=== PATIENT | female | born 1935 | race Caucasian/White ===

== ENCOUNTER 2018-12-08 08:45 | Emergency (ER) | payer OTHER ==
[~2018-12-08] VITALS: Ht 167.6 cm; Wt 69.9 kg
--- NOTE | 2018-12-08 08:55 | NUR ---
Weakness and near syncopal episode at home. Patient a/ox2, able to answer with yes or no. Patient stated she "doesnt feel good." Patient changed into gown, attached to the monitor. No distress noted. Dr. Moya at bedside for eval.
[2018-12-08 09:13] LABS: APPEARANCE,URINE Clear (CLEAR); BILIRUBIN,URINE Negative (NEGATIVE); BLOOD, URINE Trace-intact Ery/uL (NEGATIVE); COLOR,URINE Yellow (YELLOW); KETONES,URINE Negative (NEGATIVE); LEUKOCYTE ESTERASE ,URINE Small (NEGATIVE); NITRITE, URINE Positive (NEGATIVE); PH,URINE 5.5 (5.0-8.0); PROTEIN,URINE Trace mg/dl (NEGATIVE); UGLUCOSE Negative (NEGATIVE); UROBILINOGEN,URINE 0.2 EU/dL (0.2)
[2018-12-08 09:15] LABS: BACTERIA,URINE 1+ /HPF (None Seen); SQUAMOUS EPITHELIAL CELL,UR Few /HPF (None Seen)
[2018-12-08 09:24] LABS: HEMOGLOBIN 12.1 g/dL (11.5-14.8); PLATELET COUNT (AUTO) 255 /CMM (150-450)
[2018-12-08 09:27] LABS: BASOPHILS # (AUTO) 0.1 /CMM (0.0-0.2); BASOPHILS % (AUTO) 0.9 % (0.0-2.0); EOSINOPHILS % (AUTO) 0.8 % (0.0-6.0); HEMATOCRIT 37 % (33-45); LYMPHOCYTES # (AUTO) 2.1 /CMM (0.8-4.8); LYMPHOCYTES % (AUTO) 15.3 % (20.0-44.0); MEAN CORPUSCULAR HGB CONC 32 g/dl (31.0-36.0); MEAN CORPUSCULAR VOLUME 78 fL (82-100); MONOCYTES # (AUTO) 1.1 /CMM (0.1-1.30); MONOCYTES % (AUTO) 7.7 % (2.0-12.0); NEUTROPHILS # (AUTO) 10.3 /CMM (1.8-8.9); NEUTROPHILS % (AUTO) 75.3 % (43.0-81.0); RED BLOOD CELL COUNT(AUTO) 4.77 MIL/uL (4.0-5.2); WHITE BLOOD COUNT (AUTO) 13.7 K/uL (4.3-11.0)
[2018-12-08 09:32] LABS: CALCIUM, SERUM 9.1 mg/dL (8.5-10.1); CARBON DIOXIDE 25 mmol/L (21-32); CHLORIDE 102 mmol/L (98-107); GLUCOSE 194 mg/dL (74-106); POTASSIUM 4.2 mmol/L (3.5-5.1); SODIUM SERUM 137 mmol/L (136-145); UREA NITROGEN, BLOOD 19 mg/dL (7-18)
--- NOTE | 2018-12-08 09:32 | NUR ---
Caregiver at bedside. Patient and caregiver refused chest x-ray at this time. Explained risks and benefits. Dr. zhu made aware.
[2018-12-08 09:38] LABS: ALANINE AMINOTRANSFERASE 15 U/L (12-78); ALBUMIN 2.9 g/dL (3.4-5.0); ALKALINE PHOSPHATASE 71 U/L (46-116); ASPARTATE AMINOTRANSFERASE 15 U/L (15-37); BILIRUBIN,DIRECT 0.2 mg/dL (0.0-0.2); BILIRUBIN,TOTAL 0.8 mg/dL (0.2-1.0); TOTAL PROTEIN, SERUM 7.1 g/dL (6.4-8.2)
[2018-12-08] MEDS ORDERED: CEFTRIAXONE 1GM BAG (ER ONLY) 50 ML IV ONE (09:53)
[2018-12-08] MEDS ORDERED: CEFTRIAXONE 1GM BAG (ER ONLY) 1 GM/50 ML PIGGYBACK IV ONE (10:00)
[2018-12-08] MEDS ORDERED: IV NS 0.9% 1,000 ML BAG IV ONE (10:00)
--- NOTE | 2018-12-08 11:03 | NUR ---
CALLED [facility]
--- NOTE | 2018-12-08 11:42 | NUR ---
PER DR. VANEGAS, SHE SPOKE WITH DR. GUERIN AT [facility]. CAREGIVER AND PATIENT REFUSED CHEST X-RAY AND BLOOD DRAW FOR REPEAT LACTIC ACID.
--- NOTE | 2018-12-08 12:25 | NUR ---
PT ACCEPTED TO [facility] ER ACCEPTING MD: DR. FLANAGAN NUMBER FOR REPORT: [phone] S TRANSPORT ETA: [id number]
--- NOTE | 2018-12-08 13:08 | NUR ---
REPORT GIVEN TO NARDA BOYER FOR ANATOLIY.
--- NOTE | 2018-12-08 13:18 | NUR ---
PATIENT TRANSFERRED TO [facility], IN STABLE CONDITION. PERICARE PROVIDED, DIAPER CHANGED. IV ON LEFT HAND G20 INTACT AND FLUSHES WELL. CAREGIVER KAMILLA AT BEDSIDE. NO DISTRESS NOTED. Addendum: 12/08/18 at 1324 by ROALCANCES ADDENDUM: FOOD PROVIDED FOR PATIENT, GIVEN TO CAREGIVER.
[2018-12-08 13:19] VITALS: BP 112/76
== END 2018-12-08 13:35 | disposition short-term general hospital (02) ==
LOC: ER 08:46
DX: E86.0 Dehydration (principal); N39.0 Urinary tract infection, site not specified; I48.91 Unspecified atrial fibrillation; K21.9 Gastro-esophageal reflux disease without esophagitis; E11.9 Type 2 diabetes mellitus without complications; M19.90 Unspecified osteoarthritis, unspecified site; Z85.828 Personal history of other malignant neoplasm of skin; Z98.890 Other specified postprocedural states; Z88.5 Allergy status to narcotic agent; Z88.2 Allergy status to sulfonamides
CPT/HCPCS: 36415; 80048; 80076; 81001; 83605; 84484; 85025; 85730; 87040 ×2; 87086; 93005; 96365; 99285; J0696; J7030; 81000-TC

== ENCOUNTER 2019-10-16 17:47 | Inpatient (IN) | payer OTHER ==
[~2019-10-16] VITALS: Ht 175.3 cm; Wt 77.1 kg
--- NOTE | 2019-10-16 17:50 | NUR ---
PT BIBRA FROM HOME TO ER BED 09. PER REPORT PT WAS FOUND BY CAREGIVER , "SLUMPED IN THE TOILET" PASSED OUT 30 MINS SOC ANALYST. PT WAS AWAKE VERBALLY RESPONSIVE SOC ANALYST W/ BG OF 261 PER REPORT, HX OF STROKE 3 YEARS AGO W/ R SIDED DEFICIT. GOWNED AND PLACED ON MONITOR. STABLE VITALS SOC ANALYST. AWAITING MD ZAPIEN.
[2019-10-16] MEDS ORDERED: ATOR20TA PO (18:03)
[2019-10-16] MEDS ORDERED: WARF1TAB86 MT (18:03)
[2019-10-16] MEDS ORDERED: ATEN25TA PO (18:03)
[2019-10-16] MEDS ORDERED: CITA20TA16 MT (18:03)
[2019-10-16] MEDS ORDERED: LEVE250T2 PO (18:03)
[2019-10-16] MEDS ORDERED: METF-441 MT (18:03)
[2019-10-16] MEDS ORDERED: LEVE250T4 MT (18:03)
[2019-10-16] MEDS ORDERED: LOSA50TA39 MT (18:03)
--- NOTE | 2019-10-16 18:11 | NUR ---
DR HAYES AT BEDSIDE FOR EVAL.
[2019-10-16 18:21] LABS: BASOPHILS # (AUTO) 0.1 /CMM (0.0-0.2); BASOPHILS % (AUTO) 1.1 % (0.0-2.0); EOSINOPHILS % (AUTO) 1.2 % (0.0-6.0); HEMATOCRIT 24 % (33-45); HEMOGLOBIN 7.3 g/dL (11.5-14.8); LYMPHOCYTES % (AUTO) 15.3 % (20.0-44.0); MEAN CORPUSCULAR HGB CONC 30 g/dl (31.0-36.0); MEAN CORPUSCULAR VOLUME 75 fL (82-100); MONOCYTES # (AUTO) 0.9 /CMM (0.1-1.30); MONOCYTES % (AUTO) 7.1 % (2.0-12.0); NEUTROPHILS % (AUTO) 75.3 % (43.0-81.0); PLATELET COUNT (AUTO) 413 /CMM (150-450); RED BLOOD CELL COUNT(AUTO) 3.23 MIL/uL (4.0-5.2); WHITE BLOOD COUNT (AUTO) 13.3 K/uL (4.3-11.0)
[2019-10-16 19:00] LABS: ALANINE AMINOTRANSFERASE 15 U/L (12-78); ALBUMIN 2.7 g/dL (3.4-5.0); ALKALINE PHOSPHATASE 67 U/L (46-116); ASPARTATE AMINOTRANSFERASE 17 U/L (15-37); B-TYPE NATRIURETIC PEPTIDE 1607 PG/ML (0-125); BILIRUBIN,DIRECT 0.1 mg/dL (0.0-0.2); BILIRUBIN,TOTAL 0.3 mg/dL (0.2-1.0); CALCIUM, SERUM 9.1 mg/dL (8.5-10.1); CARBON DIOXIDE 21 mmol/L (21-32); CHLORIDE 107 mmol/L (98-107); CREATININE 1.1 mg/dL (0.6-1.3); GLUCOSE 226 mg/dL (74-106); POTASSIUM 3.7 mmol/L (3.5-5.1); SODIUM SERUM 143 mmol/L (136-145); TOTAL PROTEIN, SERUM 7.1 g/dL (6.4-8.2); UREA NITROGEN, BLOOD 33 mg/dL (7-18)
--- NOTE | 2019-10-16 19:09 | NUR ---
REPOR GIVEN TO MEDICAL AFFAIRS SPECIALIST NURSE FIDENCIO FOR ANATOLIY.
--- NOTE | 2019-10-16 19:14 | NUR ---
REPORT RECEIVED FROM ROSALIND UPTON FOR ANATOLIY
[2019-10-16 19:26] LABS: APPEARANCE,URINE Turbid (CLEAR); BILIRUBIN,URINE LARGE (NEGATIVE); BLOOD, URINE Large Ery/uL (NEGATIVE); COLOR,URINE Red (YELLOW); KETONES,URINE 40 (NEGATIVE); LEUKOCYTE ESTERASE ,URINE Large (NEGATIVE); NITRITE, URINE Positive (NEGATIVE); PH,URINE 8.5 (5.0-8.0); PROTEIN,URINE >=300 mg/dl (NEGATIVE); UGLUCOSE 100 MG/DL mg/dL (NEGATIVE)
[2019-10-16 19:37] LABS: BACTERIA,URINE Moderate /HPF (None Seen); RBC,URINE TOO NUMEROUS TO COUN /HPF (0-2); SQUAMOUS EPITHELIAL CELL,UR Few /HPF (None Seen); WBC,URINE 21-50 /HPF (0-3)
--- NOTE | 2019-10-16 19:41 | NUR ---
CALLED FOR COVID SWAB
--- NOTE | 2019-10-16 19:45 | NUR ---
CHING, PT'S SON
--- NOTE | 2019-10-16 19:49 | NUR ---
CALLED [facility]
--- NOTE | 2019-10-16 19:58 | NUR ---
DR. HAYES SPEAKING WITH [facility]
--- NOTE | 2019-10-16 20:28 | NUR ---
CALLED NURSING SUP FOR BED
[2019-10-16] MEDS ORDERED: CEFTRIAXONE 1GM BAG (ER ONLY) 50 ML IV ONE (20:29)
[2019-10-16 20:30] VITALS: BP 139/67
[2019-10-16] MEDS ORDERED: CEFTRIAXONE 1 G in IV D5W 50 ML IV ONE (20:30)
--- NOTE | 2019-10-16 20:59 | NUR ---
HEMATURIA NOTED. 15 ML
--- NOTE | 2019-10-16 21:05 | NUR ---
BED ASSIGNMENT 310-2
--- NOTE | 2019-10-16 21:14 | NUR ---
REPROT GIVEN TO ROSALIND ADAMS
[2019-10-16] MEDS ORDERED: IV NS 0.9% 1,000 ML IV PRN (21:28)
[2019-10-16 21:30] VITALS: BP 139/67
[2019-10-16] MEDS ORDERED: ONDANSETRON HCL/PF 4 MG/2 ML VIAL IVP PRN (21:30)
[2019-10-16] MEDS ORDERED: ACETAMINOPHEN 325 MG TABLET PO PRN (21:30)
[2019-10-16] MEDS ORDERED: Z GUARD REMEDY 2 OZ OINT TP PRN (21:30)
--- NOTE | 2019-10-16 21:30 | NUR ---
TELE/RN NOTES TELE MONITOR RHTHM AFIB, ALERT, ORIENTED X2, APHASIA, STROUD CATHETER DRAINING DARK RED COLOR URINE AT 150 ML. , RECEIVED PATIENT FROM ER, ON A GURNEY, PALE, WEAK, ON ROOM AIR, OPENS EYES, FOLLOW SIMPLE COMMANDS, PATIENT BELONGINGS CHECK, ROOM ORIENTATION PROVIDED, PATIENT SKIN WITH REDNESS ON SACRUM AND HEEL, OFF LOAD. IV SITE ON LEFT HAND, FAMILY INVOLVED, MD GALICIA ADMITTING DR AMBER SON WANTS TO COMMUNICATE AND DISCUSS CARE WITH MD GALICIA, SIGNED BLOOD TRANSFUSION FORM AND DISCUSSED MEASURES TO SAVE LIFE BY NO ADDED MEASURES TO INTUBATEM TO BRING A COPY OF POLST. REPORTED HAD WARFARIN MEDICATION AMD REPORTED OTHER HOME MEDS, TO FOLLOW UP ON DIET WITH CELIAC AND METFORMING, FOOD CHOICES REQUIRING ATTENTION, AND WILL NEED H&P WITH MEDICAL R MORAIM[facility] MEADOWS PATIENT, NEED FOR BLOOD TRANSFUSION AND MONITORING DURING THE NIGHT.BED LOCKED, CALL LIGHTS WITHIN REACH.
--- NOTE | 2019-10-16 21:45 | NUR ---
VERBAL CONSENT BY MD GALICIA FOR BLOOD TRANSFUSION ORDER.TO FOLLOW UP IN AM FOR SIGNATURE.
[2019-10-16] MEDS ORDERED: FUROSEMIDE 20 MG/2 ML VIAL IV PRN (22:00)
[2019-10-16] MEDS ORDERED: INSULIN REGULAR, HUMAN 100 UNIT/ML 3 ML VIAL SQ PRN (22:00)
[2019-10-16] MEDS ORDERED: ATORVASTATIN 10 MG TABLET PO SCH (22:00)
[2019-10-16] MEDS ORDERED: DEXTROSE 50%-WATER 50 ML DISP.SYRIN IV PRN (22:00)
[2019-10-16] MEDS ORDERED: CITALOPRAM HYDROBROMIDE 20 MG TABLET PO SCH (22:00)
[2019-10-16] MEDS ORDERED: LEVETIRACETAM (250 MG) 250 MG TABLET PO SCH (22:00)
--- NOTE | 2019-10-16 22:00 | NUR ---
TELE/RN NOTES TELE AFIB, PULSE RATE AT 79
--- NOTE | 2019-10-16 22:30 | NUR ---
critical lab reported at 6.8 level, with consent for blood signed by son.
--- NOTE | 2019-10-16 22:43 | NUR ---
TELE/RN NEW ADMISSION NOTES SON CHING INFORMED THAT HE IS THE DPOA OF HIS MOTHER, HE HAS BEEN WAITING FOR SO LONG TO WAIT FOR THE MD, HE WANTS TO CLARIFY PLAN OF CARE HE IS THE DPOA BUT HE DO NOT HAVE THE COPY DUE TO COMING DIRECTLY FROM WORK, HE WANTS TO MAKE SURE THAT HIS MOTHER WHO IS A [employer] MEMBER HAVE ALL THE LIST OF DIAGNOSIS INCLUDING: CELIAC DISEASE NO WHEAT AND NO BARLEY, WOULD LIKE TO HAVE H AND P PROVIDED TO HIM TODAY, INFORMED THAT AND CHARGE NURSE WAS INFORM AND DISCUSSED THAT MEDICAL RECORD WILL BE OPEN TOMORROW, , STEPHANE LOPEZ MADE AWARE.
[2019-10-16 23:17] LABS: HEMATOCRIT 23 % (33-45); MEAN CORPUSCULAR HGB CONC 30 g/dl (31.0-36.0); MEAN CORPUSCULAR VOLUME 73 fL (82-100); PLATELET COUNT (AUTO) 371 /CMM (150-450); RED BLOOD CELL COUNT(AUTO) 3.07 MIL/uL (4.0-5.2); WHITE BLOOD COUNT (AUTO) 11.2 K/uL (4.3-11.0)
[2019-10-16 23:27] LABS: HEMOGLOBIN 6.8 g/dL (11.5-14.8)
[2019-10-17] VITALS (8 sets, daily range): BP systolic 118–162; BP diastolic 61–71
[2019-10-17] MEDS: BLOOD SUGAR DIAGNOSTIC 1 EACH STRIP IN SCH ×4 (00:22→17:30)
--- NOTE | 2019-10-17 01:45 | NUR ---
TELE/RN NOTES I PRBC BLOOD RECEIVED FROM THE LAB, VERIFIED BY HUSSAIN MARTIN, CONSENT SIGNED BY SON,RASHEED FOR MD SIGNATURE TO FOLLOW UP WITH CHARGE NURSE, RECEIVED BLOOD AT 0135. PATIENT
--- NOTE | 2019-10-17 01:49 | NUR ---
TELE/RN NOTES BLOOD CHECKED AND VERIFIED BY ANOTHER RN BRICE, VITAL SIGNS CHECK PRIOR TO ADMINISTRATION, BLOOD TRANSFUSED 379 ML, PATIENT ALERT, ORIENTED, ABLE TO RESPOND AND ALERT X3. BLOOD STARTED AT 0148.
--- NOTE | 2019-10-17 02:25 | NUR ---
TO FOLLOW UP CODE STATUS PERS ON WILL INFORM MD GALICIA ABOUT CODE STATUS, NOT TO INTUBATE BUT TO KEEP ALIVE AND DO CPR.
--- NOTE | 2019-10-17 04:23 | NUR ---
BLOOD TRANSFUSION ENDED, ONE PRBC TRANSFUSED PATIENT WITH NO S/S OF REACTION, RESPITATIONS EVEN AND UNLABORED,SKIN WARM TO TOUCH, AWAKE, ALERT X2, NO GRIMACE OR GUARDING.
[2019-10-17 06:29] LABS: BASOPHILS # (AUTO) 0.1 /CMM (0.0-0.2); BASOPHILS % (AUTO) 0.6 % (0.0-2.0); EOSINOPHILS % (AUTO) 1.7 % (0.0-6.0); HEMATOCRIT 26 % (33-45); HEMOGLOBIN 8.4 g/dL (11.5-14.8); LYMPHOCYTES # (AUTO) 2.8 /CMM (0.8-4.8); LYMPHOCYTES % (AUTO) 26.2 % (20.0-44.0); MEAN CORPUSCULAR HGB CONC 33 g/dl (31.0-36.0); MEAN CORPUSCULAR VOLUME 76 fL (82-100); MONOCYTES # (AUTO) 1.1 /CMM (0.1-1.30); MONOCYTES % (AUTO) 10.4 % (2.0-12.0); NEUTROPHILS # (AUTO) 6.5 /CMM (1.8-8.9); NEUTROPHILS % (AUTO) 61.1 % (43.0-81.0); PLATELET COUNT (AUTO) 351 /CMM (150-450); WHITE BLOOD COUNT (AUTO) 10.6 K/uL (4.3-11.0)
--- NOTE | 2019-10-17 06:45 | NUR ---
310-2 TELE/RN NOTES PATIENT AWAKE, ALERT X2, ABLE TO COOPERATE AND CALM. RESPIRATIONS EVEN AND UNLABORED ON ROOM AIR, SKIN COOL TO TOUCH, WARM BLANKET PROVIDED,PATIENT PALE AND WITH LOW HGB LEVEL OF 6.8 , ONE PRBC OF BLOOD ADMINISTERED, BED LOCKED, CALL LIGHTS WITHIN REACH, WILL ENDORSE TO AM RN FOR ANATOLIY.
[2019-10-17 07:24] LABS: THYROID STIMULATING HORMONE 0.819 uIU/mL (0.358-3.74)
[2019-10-17 07:30] LABS: ALBUMIN 2.5 g/dL (3.4-5.0); BILIRUBIN,TOTAL 0.9 mg/dL (0.2-1.0); CALCIUM, SERUM 8.6 mg/dL (8.5-10.1); CREATININE 0.7 mg/dL (0.6-1.3); MAGNESIUM 1.7 mg/dL (1.8-2.4); PHOSPHORUS 2.8 mg/dL (2.5-4.9); POTASSIUM 3.5 mmol/L (3.5-5.1); TOTAL PROTEIN, SERUM 6.5 g/dL (6.4-8.2)
--- NOTE | 2019-10-17 07:49 | NUR ---
TRUCK ASSEMBLER OPENING NOTES RECEIVED PT IN BED, AWAKE, A/O X1. PATIENT ON ROOM AIR; BREATHING IS EVEN AND UNLABORED; NO SOB NOTED AT THIS TIME. NO COMPLAINS OF PAIN. L HAND IV ACCESS G # 20. SAFETY PRECAUTIONS IN PLACE; BED IN LOW POSITION AND LOCKED, RAILS UP X2, CALL LIGHT WITHIN REACH. WILL CONTINUE TO MONITOR PATIENT.
[2019-10-17] MEDS ORDERED: LEVETIRACETAM (250 MG) 250 MG TABLET PO SCH (09:00)
[2019-10-17] MEDS ORDERED: ATENOLOL 25 MG TABLET PO SCH (09:00)
[2019-10-17] MEDS: LOSARTAN POTASSIUM 50 MG TABLET PO SCH ×2 (09:14→17:37)
[2019-10-17] MEDS: POTASSIUM CHLORIDE 20 MEQ TAB.PRT.SR PO SCH ×3 (09:15→11:38)
[2019-10-17] MEDS: METFORMIN 850 MG TABLET PO SCH ×2 (09:15→17:37)
[2019-10-17] MEDS ORDERED: MAGNESIUM OXIDE 400 MG TABLET PO ONE (09:30)
[2019-10-17 10:52] LABS: HEMATOCRIT 27 % (33-45); HEMOGLOBIN 8.8 g/dL (11.5-14.8); MEAN CORPUSCULAR HGB CONC 32 g/dl (31.0-36.0); MEAN CORPUSCULAR VOLUME 77 fL (82-100); PLATELET COUNT (AUTO) 360 /CMM (150-450); RED BLOOD CELL COUNT(AUTO) 3.55 MIL/uL (4.0-5.2); WHITE BLOOD COUNT (AUTO) 10.6 K/uL (4.3-11.0)
[2019-10-17] MEDS: FUROSEMIDE 40 MG/4 ML VIAL IV SCH ×2 (11:38→15:02)
--- NOTE | 2019-10-17 12:10 | NUR ---
HIGH LIGHTER NOTES PATIENT'S SON CALLED MULTIPLE TIMES. UPDATES GIVEN. ALSO WANTS TO TALK TO MD. MD NOTIFIED.
--- NOTE | 2019-10-17 12:16 | NUR ---
DENT REMOVER NOTES PT WITH ACCU-CHECK BS 211 REFUSED INSULIN ADMINISTRATION
--- NOTE | 2019-10-17 13:30 | NUR ---
DIRECTOR ORACLE DATABASE NOTES PER AUTOMOTIVE SALES ASSOCIATE NURSE PT HAD HEMATURIA. DURING EARLY SHIFT URINE WITH HEMATURIA ABOUT 300 MLS. AFTER LASIX AT 1130 (LATE DELIVERY BY PHARMACY) PATIENT STARTED TO DIURIS AND STROUD BAG GOT FULL WITH DARK RED BLOOD. CHARGE NURSE NOTIFIED. CATHETER IRRIGATED WITH 60 CC OF NS. MD NOTIFIED. ORDERS CARRIED OUT. WILL CONTINUE TO MONITOR PATIENT.
[2019-10-17] MEDS ORDERED: PHYTONADIONE 5 MG TABLET PO ONE (14:00)
[2019-10-17 14:53] LABS: HEMATOCRIT 27 % (33-45); HEMOGLOBIN 8.6 g/dL (11.5-14.8); MEAN CORPUSCULAR HGB CONC 32 g/dl (31.0-36.0); MEAN CORPUSCULAR VOLUME 77 fL (82-100); PLATELET COUNT (AUTO) 394 /CMM (150-450); RED BLOOD CELL COUNT(AUTO) 3.55 MIL/uL (4.0-5.2); WHITE BLOOD COUNT (AUTO) 10.6 K/uL (4.3-11.0)
[2019-10-17] MEDS ORDERED: FUROSEMIDE 40 MG/4 ML VIAL IV SCH (15:00)
--- NOTE | 2019-10-17 19:02 | NUR ---
QUILT SEWERLICENSED MIDWIFE NOTES PATIENT TRANSFERRED TO [facility] IN MEDICALLY STABLE CONDITION. VS WNL, PATIENT A/O X2, ON ROOM AIR SATURATING AT 100 %. PATIENT LEFT WITH STROUD CATH (HEMATURIA STILL PRESENT) MD AND CHARGE NURSE AWARE. IV ACCESS ALSO LEFT IN PLACE. ALL DOCUMENTS SIGNED BY 2 NURSES DUE TO PATIENT UNABLE TO SIGN. VALUABLES ACCOUNTED FOR AND FORM SIGNED WELL. PATIENT'S SON, CHING, CONSENTED THE TRANSFER OVER THE PHONE AND ACUTE TO ACUTE FORMS SIGNED. [facility] CALLED AND REPORT GIVEN. PATIENT WAS PICKED UP AT 1800 BY 2 PROFESSIONAL SYSTEM ADMINISTRATOR. PATIENT LEFT THE FLOOR AT 1815.
[2019-10-17] MEDS ORDERED: CEFTRIAXONE 1 G in IV D5W 50 ML IV SCH (21:00)
== END 2019-10-17 18:45 | disposition short-term general hospital (02) | DRG 73 ==
LOC: ER 17:47 → TELE 21:06
PROVIDERS: ADMIT Nurse Practitioner Acute Care; ATTEND Internal Medicine
PROC: 30233N1 Transfusion of Nonautologous Red Blood Cells into Peripheral Vein, Percutaneous Approach (ICD-10-PCS; principal; 2019-10-16)
DX: G90.8 Other disorders of autonomic nervous system (principal); G93.41 Metabolic encephalopathy; N39.0 Urinary tract infection, site not specified; I69.351 Hemiplegia and hemiparesis following cerebral infarction affecting right dominant side; D68.9 Coagulation defect, unspecified; J98.11 Atelectasis; I48.91 Unspecified atrial fibrillation; Z85.828 Personal history of other malignant neoplasm of skin; I50.9 Heart failure, unspecified; K21.9 Gastro-esophageal reflux disease without esophagitis; M19.90 Unspecified osteoarthritis, unspecified site; Z88.5 Allergy status to narcotic agent; Z88.2 Allergy status to sulfonamides; Z79.01 Long term (current) use of anticoagulants; Z79.84 Long term (current) use of oral hypoglycemic drugs; Z79.899 Other long term (current) drug therapy; J44.9 Chronic obstructive pulmonary disease, unspecified; K64.4 Residual hemorrhoidal skin tags; K90.0 Celiac disease; E11.9 Type 2 diabetes mellitus without complications; D64.9 Anemia, unspecified; F32.9 Major depressive disorder, single episode, unspecified; E83.42 Hypomagnesemia; E78.5 Hyperlipidemia, unspecified; G40.909 Epilepsy, unspecified, not intractable, without status epilepticus; R31.9 Hematuria, unspecified; D72.829 Elevated white blood cell count, unspecified; W18.11XA Fall from or off toilet without subsequent striking against object, initial encounter; Y92.002 Bathroom of unspecified non-institutional (private) residence as the place of occurrence of the external cause; G93.89 Other specified disorders of brain
CPT/HCPCS: 36415; 70450-TC; 71045-TC; 80048-TC; 80053-TC; 80061-TC; 80076-TC; 81000-TC; 82962-TC; 83540-TC; 83735-TC; 83880; 84100-TC; 84443-TC; 84484-TC; 85025-TC; 85027-TC; 85610-TC; 85730-TC; 86850-TC; 86921-TC; 87081-TC; 87086-TC; 87186-TC; 92611-TC; 93307-TC; G0378; J0696; J1815; J1940; J7050; J7060; P9016-BL

== ENCOUNTER 2019-10-23 19:57 | Emergency (ER) | payer OTHER ==
[~2019-10-23] VITALS: Ht 175.3 cm; Wt 73.5 kg
[~2019-10-23 19:57] MED LIST: ATEN25TA PO; ATOR20TA PO; CITA20TA16 MT; LEVE250T2 PO; LEVE250T4 MT; LOSA50TA39 MT; METF-441 MT; WARF1TAB86 MT
--- NOTE | 2019-10-23 20:01 | NUR ---
PT BIBRA FOR SYNCOPE. I SPOKE TO THE SON REGARDING THE INCIDENT. SON STATED THE PT USUALLY AMBUALTES WITH HELP OF THE TEAM LEAD. TODAY, PT WAS SITTING ON THE TOILET WHEN SHE STARTED TO HAVE A SYNCOPAL EPISODE. RA87 WAS CALLED, RA WAS TAKING THE PT, THE PT GAINED CONCIOUS. THE SON ALSO STATED THE PT WAS DISCHARGED FROM [facility]. UPON ASSESSMENT PT ABLE TO FOLLOW COMMANDS AND SPEAKS IN MINIMAL WORDS (DUE TO L SIDED STROKE.) PT RR EVEN AND UNLABORED. NO ACUTE DISTRESS NOTED. MD AT BEDSIDE FOR EVAL. AWAITING ORDERS. VSS. WILL COTNINUE TO MONITOR.
--- NOTE | 2019-10-23 20:18 | NUR ---
BROUGHT TO CT
--- NOTE | 2019-10-23 20:42 | NUR ---
CLEANERS AT BEDSIDE FOR LABS
[2019-10-23 20:57] LABS: BASOPHILS # (AUTO) 0.1 /CMM (0.0-0.2); BASOPHILS % (AUTO) 0.5 % (0.0-2.0); EOSINOPHILS % (AUTO) 0.1 % (0.0-6.0); HEMATOCRIT 27 % (33-45); HEMOGLOBIN 7.9 g/dL (11.5-14.8); LYMPHOCYTES # (AUTO) 1.2 /CMM (0.8-4.8); LYMPHOCYTES % (AUTO) 10.5 % (20.0-44.0); MEAN CORPUSCULAR HGB CONC 30 g/dl (31.0-36.0); MEAN CORPUSCULAR VOLUME 79 fL (82-100); MONOCYTES # (AUTO) 1.1 /CMM (0.1-1.30); MONOCYTES % (AUTO) 9.4 % (2.0-12.0); NEUTROPHILS # (AUTO) 9.4 /CMM (1.8-8.9); NEUTROPHILS % (AUTO) 79.5 % (43.0-81.0); PLATELET COUNT (AUTO) 434 /CMM (150-450)
[2019-10-23 21:01] LABS: CALCIUM, SERUM 8.7 mg/dL (8.5-10.1); CREATININE 1.1 mg/dL (0.6-1.3); POTASSIUM 3.5 mmol/L (3.5-5.1)
--- NOTE | 2019-10-23 21:30 | NUR ---
CALLED [facility], AWAITING MD CALL BACK
[2019-10-23 21:37] LABS: EOSINOPHILS % (MANUAL) 2 % (0-4); LYMPHOCYTES % (MANUAL) 9 % (16-48); MONOCYTES % (MANUAL) 6 % (0-11.0); NEUTROPHILS % (MANUAL) 83 (42-76)
[2019-10-23 21:51] LABS: WHITE BLOOD COUNT (AUTO) 11.6 K/uL (4.3-11.0)
--- NOTE | 2019-10-23 22:21 | NUR ---
TRANSFER INFO: [facility] LAURA, RN FOR REPORT [phone] MD NAVARRO ACCEPTING, [facility] ETA [id number]
[2019-10-23 22:22] VITALS: BP 132/70
--- NOTE | 2019-10-23 23:00 | NUR ---
PT TRANSFERED TO [facility].
--- NOTE | 2019-10-23 23:00 | NUR ---
REPORT GIVEN TO BECKY BOYER FOR ANATOLIY AND TRANSFER.
== END 2019-10-23 23:05 | disposition short-term general hospital (02) ==
LOC: ER 19:59
DX: R55 Syncope and collapse (principal); J90 Pleural effusion, not elsewhere classified; D64.9 Anemia, unspecified; I69.351 Hemiplegia and hemiparesis following cerebral infarction affecting right dominant side; I10 Essential (primary) hypertension; I48.91 Unspecified atrial fibrillation; E11.9 Type 2 diabetes mellitus without complications; I25.10 Atherosclerotic heart disease of native coronary artery without angina pectoris; G40.909 Epilepsy, unspecified, not intractable, without status epilepticus; E78.5 Hyperlipidemia, unspecified; K21.9 Gastro-esophageal reflux disease without esophagitis; Z85.828 Personal history of other malignant neoplasm of skin; Z98.890 Other specified postprocedural states; Z88.2 Allergy status to sulfonamides; Z88.5 Allergy status to narcotic agent; Z79.899 Other long term (current) drug therapy
CPT/HCPCS: 36415; 70450-TC; 71045-TC; 80048-TC; 82962-TC; 83735-TC; 84484-TC; 85025-TC; 85730-TC

== ENCOUNTER 2019-10-28 20:57 | Inpatient (IN) | payer OTHER ==
[~2019-10-28] VITALS: Ht 165.1 cm; Wt 70.8 kg
--- NOTE | 2019-10-28 21:02 | NUR ---
DR CHAVEZ ON THE PHONE WITH THE FAMILY
--- NOTE | 2019-10-28 21:22 | NUR ---
Note undone in EDM - 10/28/19 at 2150 by ANDRY ROBSONRA 89 FROM HOME FOR C/O ALOC. RESPIRATORY FAILURE AND ON AMBU BAG WITH EMSs UPON ARRIVAL . DNR ON POLST. PT EYES OPEN, NON REACTIVE, NON VERBAL. PLACED ON O2 HI FLOW NON REBREATHER PER DR. CHAVEZ. PLACED ON ROUTE SALES PERSON. SR. WILL CONT TO MONITOR.
--- NOTE | 2019-10-28 21:22 | NUR ---
AUGUSTINA 89 FROM HOME FOR C/O ALOC. RESPIRATORY FAILURE AND ON AMBU BAG WITH EMSs UPON ARRIVAL . DNR ON POLST. PT EYES OPEN, NON VERBAL. PLACED ON O2 HI FLOW NON REBREATHER PER DR. CHAVEZ. PLACED ON S IRON WORKER. SR. WILL CONT TO MONITOR.
[2019-10-28] MEDS ORDERED: IV NS 0.9% 500 ML BAG IV ONE ×2 (21:30→22:30)
[2019-10-28 21:43] LABS: BASOPHILS % (AUTO) 0.3 % (0.0-2.0); EOSINOPHILS % (AUTO) 0.5 % (0.0-6.0); HEMATOCRIT 39 % (33-45); HEMOGLOBIN 11.1 g/dL (11.5-14.8); LYMPHOCYTES # (AUTO) 2.8 /CMM (0.8-4.8); LYMPHOCYTES % (AUTO) 18.4 % (20.0-44.0); MEAN CORPUSCULAR HGB CONC 28 g/dl (31.0-36.0); MEAN CORPUSCULAR VOLUME 85 fL (82-100); MONOCYTES # (AUTO) 1.1 /CMM (0.1-1.30); MONOCYTES % (AUTO) 7.1 % (2.0-12.0); NEUTROPHILS % (AUTO) 73.7 % (43.0-81.0); PLATELET COUNT (AUTO) 255 /CMM (150-450); RED BLOOD CELL COUNT(AUTO) 4.61 MIL/uL (4.0-5.2)
[2019-10-28 21:50] LABS: ALANINE AMINOTRANSFERASE 13 U/L (12-78); ALBUMIN 2.7 g/dL (3.4-5.0); ALKALINE PHOSPHATASE 90 U/L (46-116); ASPARTATE AMINOTRANSFERASE 18 U/L (15-37); BILIRUBIN,DIRECT 0.2 mg/dL (0.0-0.2); BILIRUBIN,TOTAL 0.7 mg/dL (0.2-1.0); CALCIUM, SERUM 9.4 mg/dL (8.5-10.1); CARBON DIOXIDE 21 mmol/L (21-32); CHLORIDE 114 mmol/L (98-107); CREATININE 1.3 mg/dL (0.6-1.3); LIPASE 144 U/L (73-393); POTASSIUM 4.1 mmol/L (3.5-5.1); SODIUM SERUM 150 mmol/L (136-145); TOTAL PROTEIN, SERUM 7.4 g/dL (6.4-8.2); UREA NITROGEN, BLOOD 24 mg/dL (7-18)
--- NOTE | 2019-10-28 22:00 | NUR ---
PT TO CT VIA [facility]
--- NOTE | 2019-10-28 22:07 | NUR ---
BACK FROM CT
[2019-10-28 22:09] LABS: GLUCOSE 365 mg/dL (74-106)
--- NOTE | 2019-10-28 22:15 | NUR ---
[facility] CALLED.
[2019-10-28 22:26] LABS: EOSINOPHILS % (MANUAL) 1 % (0-4); LYMPHOCYTES % (MANUAL) 20 % (16-48); MONOCYTES % (MANUAL) 7 % (0-11.0); NEUTROPHILS % (MANUAL) 72 (42-76)
[2019-10-28] MEDS ORDERED: VANCOMYCIN 1 GM in IV D5W 250 ML IV ONE (22:30)
[2019-10-28] MEDS ORDERED: PIPERACILLIN /TAZOBACTAM 3.375 G in IV D5W 50 ML IV ONE (22:30)
--- NOTE | 2019-10-28 22:34 | NUR ---
VAUGHN VALERA MD, DR IVAN, ON THE PHONE W/ DR. ALLEN
[2019-10-28] MEDS ORDERED: Z GUARD REMEDY 2 OZ OINT TP PRN (23:00)
[2019-10-28] MEDS ORDERED: ACETAMINOPHEN 325 MG TABLET PO PRN (23:00)
[2019-10-28] MEDS ORDERED: ZOLPIDEM TARTRATE 5 MG TABLET PO PRN (23:00)
[2019-10-28] MEDS ORDERED: ONDANSETRON HCL/PF 4 MG/2 ML VIAL IVP PRN (23:00)
[2019-10-28] MEDS ORDERED: MAGNESIUM HYDROXIDE 30 ML UDC PO PRN (23:00)
[2019-10-28] MEDS ORDERED: DEXTROSE 50%-WATER 50 ML DISP.SYRIN IV PRN (23:00)
[2019-10-28] MEDS ORDERED: INSULIN REGULAR, HUMAN 100 UNIT/ML 3 ML VIAL SQ PRN (23:00)
[2019-10-28 23:05] LABS: APPEARANCE,URINE Slightly Cloudy (CLEAR); BILIRUBIN,URINE Negative (NEGATIVE); BLOOD, URINE Large Ery/uL (NEGATIVE); COLOR,URINE Yellow (YELLOW); KETONES,URINE Negative (NEGATIVE); LEUKOCYTE ESTERASE ,URINE Trace (NEGATIVE); NITRITE, URINE Negative (NEGATIVE); PROTEIN,URINE 100 mg/dl (NEGATIVE); UGLUCOSE 100 MG/DL mg/dL (NEGATIVE); UROBILINOGEN,URINE 0.2 EU/dL (0.2)
[2019-10-28] MEDS ORDERED: VANCOMYCIN 1 GM VIAL ONE (23:05)
[2019-10-28] MEDS ORDERED: PIPERACILLIN /TAZOBACTAM 3.375 G VIAL IV ONE (23:06)
[2019-10-28 23:35] LABS: BACTERIA,URINE None seen /HPF (None Seen); MUCUS,URINE Rare /LPF (None Seen); SQUAMOUS EPITHELIAL CELL,UR Moderate /HPF (None Seen)
[2019-10-28 23:53] LABS: ABG BASE EXCESS -1.6 mmol/L; ABG OXYGEN SATURATION 98.9 % (92.0-98.5); ABG PCO2 32.2 mmHg (35.0-45.0); ABG PH 7.449 (7.350-7.450); ABG PO2 286.8 mmHg (75.0-100.0); COHb 0.3 % (0.5-1.5); MetHb 0.6 % (0.0-1.5); SITE, ABG Left Radial; VENT MODE, BG NRB mask 100% 15L
--- NOTE | 2019-10-29 00:25 | NUR ---
WEATHERIZATION SPECIALISTFELT HANGER NOTE: Received report from Oksana in ER. Received patient in the unit at 0025. Patient was transferred on a gurney. Noted patient on non-rebreather mask on 15L of Oxygen. O2 Sat 100%. Patient is non verbal and does not response to sound or touch. Noted IV access on right AC, 20 gauge. Flushes well, patent, no redness or infiltration. Also noted IV access on Left hand. It flushes well, patent, no redness, or infiltration. Noted denise catheter; intact, draining clear yellow; no oddor. Safety precaution in place. Bed in lowest position, bed is locked, side rails x 2 are up, and call light is within reach. Will keep monitoring patient.
--- NOTE | 2019-10-29 00:28 | NUR ---
REPORT GIVEN TO ROSALIND BARRY FOR ANATOLIY
[2019-10-29] MEDS ORDERED: LEVETIRACETAM (500MG) 250 MG in IV NS 0.9% 100 ML IV SCH (01:00)
[2019-10-29] MEDS ORDERED: DEXTROSE 50%-WATER 50 ML DISP.SYRIN IV PRN (01:00)
[2019-10-29] MEDS ORDERED: LEVETIRACETAM (500MG) 500 MG/5 ML VIAL IV ONE (01:24)
[2019-10-29 02:02] VITALS: BP 148/74
[2019-10-29] MEDS: IV NS 0.9% 1,000 ML IV PRN ×2 (02:34→17:36)
[2019-10-29 03:18] LABS: BASOPHILS # (AUTO) 0.1 /CMM (0.0-0.2); BASOPHILS % (AUTO) 0.5 % (0.0-2.0); EOSINOPHILS % (AUTO) 9.5 % (0.0-6.0); HEMATOCRIT 30 % (33-45); HEMOGLOBIN 9.2 g/dL (11.5-14.8); LYMPHOCYTES # (AUTO) 1.9 /CMM (0.8-4.8); LYMPHOCYTES % (AUTO) 12.2 % (20.0-44.0); MEAN CORPUSCULAR HGB CONC 30 g/dl (31.0-36.0); MEAN CORPUSCULAR VOLUME 79 fL (82-100); MONOCYTES % (AUTO) 6.7 % (2.0-12.0); NEUTROPHILS % (AUTO) 71.1 % (43.0-81.0); PLATELET COUNT (AUTO) 208 /CMM (150-450); RED BLOOD CELL COUNT(AUTO) 3.83 MIL/uL (4.0-5.2); WHITE BLOOD COUNT (AUTO) 15.5 K/uL (4.3-11.0)
[2019-10-29 03:30] LABS: CALCIUM, SERUM 8.5 mg/dL (8.5-10.1); CREATININE 1.2 mg/dL (0.6-1.3); PHOSPHORUS 2.7 mg/dL (2.5-4.9); POTASSIUM 3.4 mmol/L (3.5-5.1)
[2019-10-29 04:15] VITALS: BP 159/109
[2019-10-29] MEDS ORDERED: PIPERACILLIN /TAZOBACTAM 3.375 G VIAL IV ONE (05:12)
[2019-10-29] MEDS ORDERED: ZOSYN IVPB 3.375 G in IV D5W 50ml IV ONE (05:15)
[2019-10-29] MEDS: BLOOD SUGAR DIAGNOSTIC 1 EACH STRIP IN SCH ×4 (06:27→23:38)
--- NOTE | 2019-10-29 06:45 | NUR ---
INSTALLER MOLDING AND TRIM CLOSING NOTE: Patient in bed sleeping comfortably. Patient shows no sign of pain. Safety precaution in place. Bed in lowest position, bed is locked, side rails x 2 are up, and call light is within reach. Will endorse to oncoming nurse.
[2019-10-29] MEDS: INSULIN REGULAR, HUMAN 100 UNIT/ML 3 ML VIAL SQ PRN (06:46)
[2019-10-29] MEDS ORDERED: BLOOD SUGAR DIAGNOSTIC 1 EACH STRIP IN SCH (07:30)
--- NOTE | 2019-10-29 07:30 | NUR ---
YARN MAN NOTES PT IN BED, NON RESPONSIVE TO VERBAL STIMULI, ON NON REBREATHER MASK, O2 SAT OF 100%, RESPIRATIONS SLOW, EVEN AND NON LABORED, NO FACIAL GRIMACING OR MOANING, SKIN COLD AND CLAMMY, SKIN IS PALE, IV FLUIDS INFUSING, F/C IN PLACE, DRAINING WELL WITH CLEAR, YELLOW URINE, PT SEEN BY DR. GARCIA AND DR. GONZALEZ, KEPT PT WARM AND COMFORTABLE.
[2019-10-29] MEDS ORDERED: FEE PK DOSING 1 MIN EA MC ONE (07:31)
[2019-10-29 08:00] VITALS: BP 135/88
--- NOTE | 2019-10-29 08:00 | NUR ---
DIRECTOR SEMICONDUCTOR NOTES SPOKE WITH PT'S SON CHING, UPDATE GIVEN ON PT'S CONDITION, VERBALIZED UNDERSTANDING, WILL CONTINUE TO MONITOR.
[2019-10-29] MEDS: ENOXAPARIN SODIUM 40 MG/0.4 ML DISP.SYRIN SQ SCH (09:00)
[2019-10-29] MEDS: LEVETIRACETAM (500MG) 250 MG in IV NS 0.9% 100 ML IV SCH ×2 (11:45→21:32)
[2019-10-29 12:00] VITALS: BP 150/86
--- NOTE | 2019-10-29 12:03 | NUR ---
MANAGER OF DISTRIBUTION NOTES PT IN BED, STILL UNRESPONSIVE, NO SOB, RESPIRATIONS SLOW BUT REGULAR, KEPT WARM AND COMFORTABLE IN BED, IV FLUIDS INFUSING.
[2019-10-29] MEDS: PIPERACILLIN /TAZOBACTAM 3.375 G in IV D5W 50 ML IV SCH ×2 (12:26→17:08)
[2019-10-29] MEDS ORDERED: POTASSIUM CL. PREMIX PERIPHER. 100 ML ONE (12:53)
[2019-10-29] MEDS: POTASSIUM CL. PREMIX PERIPHER. 50 ML IV SCH ×2 (13:06→15:13)
[2019-10-29 16:00] VITALS: BP 132/70
[2019-10-29] MEDS: VANCOMYCIN 1 GM in IV D5W 250 ML IV SCH (17:38)
--- NOTE | 2019-10-29 19:30 | NUR ---
SAMPLE CASE PORTER NOTES PT IN BED, EYES CLOSED, UNRESPONSIVE TO VERBAL AND PAINFUL STIMULI, BREATHING SLOW AND REGULAR, ON O2 AT 15LPM VIA MASK, SPOKE WITH SON CHING, PER SON, OK WITH IV FLUIDS, IV ATB AND LAB DRAWS BUT NO TO NGT, LAST RITES PERFORMED BY FAMILY HAND LAMINATOR, IV FLUIDS INFUSING, F/C DRAINING WELL WITH CLEAR, YELLOW URINE, PM CARE PROVIDED, KEPT STEEL BUFFER BED.
--- NOTE | 2019-10-29 19:40 | NUR ---
HAY BALER NOTE: PATIENT RESTING IN BED, NO ACUTE DISTRESS NOTED. BREATHING EVEN AND UNLABORED, NO SOB NOTED. PATIENT ON NON REBREATHER MASK. IV TO LEFT HAND AND RAC IN PLACE. STROUD CATHETER IN PLACE, EMPTY AT THIS TIME. NO S/S OF HYPER/HYPOGLYCEMIA NOTED. BED LOCKED AND IN LOWEST POSITION, CALL LIGHT IN REACH. WILL CONTINUE TO MONITOR.
[2019-10-29 20:47] VITALS: BP 117/66
[2019-10-29] MEDS ORDERED: ATORVASTATIN 10 MG TABLET PO SCH (22:00)
--- NOTE | 2019-10-29 23:45 | NUR ---
JUICE SCALEMAN NOTE: PATIENT BLOOD SUGAR LEVEL 233MG/DL, PATIENT NPO AT THIS TIME, NO INSULIN GIVEN. NO S/S OF HYPER/HYPOGLYCEMIA NOTED. WILL CONTINUE TO MONITOR.
[2019-10-30] VITALS: BP 140/80
[2019-10-30] MEDS: PIPERACILLIN /TAZOBACTAM 3.375 G in IV D5W 50 ML IV SCH ×5 (00:32→23:20)
[2019-10-30] MEDS: BLOOD SUGAR DIAGNOSTIC 1 EACH STRIP IN SCH ×4 (05:59→23:20)
--- NOTE | 2019-10-30 06:15 | NUR ---
DIGITAL RETOUCHER NOTE: PATIENT RESTING IN BED, NO ACUTE DISTRESS NOTED. BREATHING EVEN AND UNLABORED, NO SOB NOTED. PATIENT ON NON REBREATHER MASK. IV TO LEFT HAND IN PLACE. IV TO RAC INFILTRATED, REMOVED, COVERED WITH GAUZE, PRESSURE APPLIED, AND SECURED WITH TAPE. STROUD CATHETER IN PLACE, DRAINED 1300ML OF CLEAR YELLOW URINE. PATIENT BLOOD SUGAR LEVEL 251MG/DL, NO INSULIN GIVEN SINCE PATIENT IS NPO. NO S/S OF HYPER/HYPOGLYCEMIA NOTED. BED LOCKED AND IN LOWEST POSITION, CALL LIGHT IN REACH. WILL ENDORSE TO DAY NURSE TO CONTINUE WITH PLAN OF CARE. Addendum: 10/30/19 at 0629 by HAYDEE CALLES RN TELE READING AFIB 95
[2019-10-30 06:28] LABS: BASOPHILS % (AUTO) 0.3 % (0.0-2.0); EOSINOPHILS % (AUTO) 0.8 % (0.0-6.0); HEMATOCRIT 37 % (33-45); HEMOGLOBIN 10.5 g/dL (11.5-14.8); LYMPHOCYTES % (AUTO) 14.3 % (20.0-44.0); MEAN CORPUSCULAR HGB CONC 28 g/dl (31.0-36.0); MEAN CORPUSCULAR VOLUME 86 fL (82-100); MONOCYTES # (AUTO) 1.4 /CMM (0.1-1.30); MONOCYTES % (AUTO) 9.6 % (2.0-12.0); NEUTROPHILS # (AUTO) 10.7 /CMM (1.8-8.9); PLATELET COUNT (AUTO) 160 /CMM (150-450); RED BLOOD CELL COUNT(AUTO) 4.33 MIL/uL (4.0-5.2); WHITE BLOOD COUNT (AUTO) 14.3 K/uL (4.3-11.0)
[2019-10-30 06:35] LABS: CALCIUM, SERUM 9.1 mg/dL (8.5-10.1); CREATININE 1.2 mg/dL (0.6-1.3); POTASSIUM 3.6 mmol/L (3.5-5.1)
--- NOTE | 2019-10-30 07:30 | NUR ---
SECONDARY SCHOOL REGISTRAR NOTES PT IN BED, EYES CLOSED, RESPIRATIONS SLOW AND SHALLOW, NOT IN DISTRESS, NO SIGN OF PAIN, ON O2 AT 15LPM VIA NR MASK, KEPT HOB ELEVATED, IV FLUIDS INFUSING, REPOSITIONED FOR COMFORT, KEPT WARM AND COMFORTABLE.
[2019-10-30 08:00] VITALS: BP 60/42
[2019-10-30] MEDS: ENOXAPARIN SODIUM 40 MG/0.4 ML DISP.SYRIN SQ SCH (08:33)
[2019-10-30] MEDS: LEVETIRACETAM (500MG) 250 MG in IV NS 0.9% 100 ML IV SCH ×2 (09:13→20:29)
[2019-10-30 12:00] VITALS: BP 95/54
--- NOTE | 2019-10-30 12:18 | NUR ---
COMPUTER AIDE NOTES PT IN BED, NOT IN DISTRESS, SEEN BY DR. MORENO, WITH ELEVATED SODIUM LEVELS, DR. FOWLER INFORMED.
[2019-10-30] MEDS: IV D5W 1,000 ML IV SCH ×2 (13:06→23:20)
[2019-10-30] MEDS: VANCOMYCIN 1 GM in IV D5W 250 ML IV SCH (13:06)
[2019-10-30 16:00] VITALS: BP 115/71
[2019-10-30] MEDS: INSULIN REGULAR, HUMAN 100 UNIT/ML 3 ML VIAL SQ PRN (17:44)
--- NOTE | 2019-10-30 19:00 | NUR ---
NUT PROCESSING SUPERVISOR NOTES PT IN BED, WITH SLOW REGULAR BREATHS, NON RESPONSIVE, NO SIGN OF PAIN, IV FLUIDS INFUSING WELL, NGT INSERTED ORDERED, TOLERATED WELL, PLACEMENT VERIFIED BY KUB, DR. MORENO SPOKE TO FAMILY REGARDING PLAN OF CARE, TURNED AND REPOSITIONED Q2 HOURS, KEPT COMFORTABLE AND CHIEF LIBRARIAN BRANCH OR DEPARTMENT BED.
--- NOTE | 2019-10-30 19:40 | NUR ---
GLAZING SUPERINTENDENT NOTE: PATIENT RESTING IN BED, NO ACUTE DISTRESS NOTED. BREATHING EVEN AND UNLABORED, NO SOB NOTED. PATIENT ON NON REBREATHER MASK IN PLACE. IV TO LEFT HAND IN PLACE. STROUD CATHETER IN PLACE, EMPTY AT TIME. NG TUBE IN PLACE, TO START GLUCERNA 1.2 AT 10ML/HR, PER MD ORDER TOLERATED. NO S/S OF HYPER/HYPOGLYCEMIA NOTED. BED LOCKED AND IN LOWEST POSITION, CALL LIGHT IN REACH. WILL CONTINUE TO MONITOR.
[2019-10-30] MEDS: GLUCERNA 1.2 1,000 ML BOTTLE NG PRN (20:02)
--- NOTE | 2019-10-30 20:05 | NUR ---
MEDICAL DRIVER NOTE: PATIENT NG TUBE FEEDING STARTED AT 10ML/HR OF GLUCERNA 1.2. NG TUBE TO RIGHT NARE WITH NO RESIDUAL AND FLUSHED. PATIENT TO CONTINUE ON 10ML/HR FOR 24 HOURS AND TO ADVANCE UP TO 20ML/HR TOLERATED. HOB ELEVATED. WILL CONTINUE TO MONITOR.
[2019-10-30 21:03] VITALS: BP 95/57
[2019-10-31] VITALS: BP 96/54
[2019-10-31] MEDS: VANCOMYCIN 1 GM in IV D5W 250 ML IV SCH ×2 (00:14→12:56)
[2019-10-31] MEDS: INSULIN REGULAR, HUMAN 100 UNIT/ML 3 ML VIAL SQ PRN ×5 (00:24→23:42)
--- NOTE | 2019-10-31 00:25 | NUR ---
BAND SPLITTER NOTE: PATIENT BLOOD SUGAR LEVEL 421 MG/DL, PATIENT TO RECEIVE 10 UNITS OF INSULIN PER SLIDING SCALE. MIXER OPERATOR RAW SALT MD INFORMED. NO S/S OF HYPER/HYPOGLYCEMIA NOTED. PATIENT CURRENTLY ON NG TUBE FEEDING GLUCERNA 1.2 AT 10ML/HR AND D5W AT 100ML/HR. WILL CONTINUE TO MONITOR.
[2019-10-31 04:00] VITALS: BP 91/60
[2019-10-31] MEDS: BLOOD SUGAR DIAGNOSTIC 1 EACH STRIP IN SCH ×4 (05:05→23:40)
[2019-10-31] MEDS: PIPERACILLIN /TAZOBACTAM 3.375 G in IV D5W 50 ML IV SCH ×4 (05:05→23:28)
--- NOTE | 2019-10-31 06:15 | NUR ---
CONTINUOUS ABSORPTION PROCESS OPERATOR NOTE: PATIENT RESTING IN BED, NO ACUTE DISTRESS NOTED. BREATHING EVEN AND UNLABORED, NO SOB NOTED. PATIENT ON NON REBREATHER MASK IN PLACE. IV TO LEFT HAND IN PLACE. STROUD CATHETER IN PLACE, DRAINED 450ML OF YELLOW URINE. NG TUBE IN PLACE, INIFUSING GLUCERNA 1.2 AT 10ML/HR, WITH NO RESIDUAL. PATIENT BLOOD SUGAR LEVEL 410MG/DL, TO RECEIVE 10 UNITS OF INSULIN PER SLIDING SCALE. NO S/S OF HYPER/HYPOGLYCEMIA NOTED. BED LOCKED AND IN LOWEST POSITION, CALL LIGHT IN REACH. WILL ENDORSE TO DAY NURSE TO CONTINUE WITH PLAN OF CARE. Addendum: 10/31/19 at 0647 by HAYDEE CALLES RN TELE READING AFIB 80'S.
--- NOTE | 2019-10-31 06:25 | NUR ---
MS RN NOTE: PATIENT RESTING IN BED, NO ACUTE DISTRESS NOTED. BREATHING EVEN AND UNLABORED, NO SOB NOTED. PICC TO BRIGIDA IN PLACE. PATIENT BLOOD SUGAR LEVEL 100MG/DL, NO INSULIN NEEDED PER SLIDING SCALE. NO S/S OF HYPER/HYPOGLYCEMIA NOTED. BED LOCKED AND IN LOWEST POSITION, CALL LIGHT IN REACH. WILL ENDORSE TO DAY NURSE TO CONTINUE WITH PLAN OF CARE. Addendum: 10/31/19 at 0644 by HAYDEE CALLES RN ERROR IN ENTRY, WRONG PATIENT
--- NOTE | 2019-10-31 07:20 | NUR ---
BUSINESS PROCESS ASSOCIATE NOTES PATIENT RECEIVED IN BED RESTING COMFORTABLY. ON WASHER MACHINE A-FIB, 70'S. ON NON-REBREATHER 15L, NO SOB NOTED, WITH NON-LABORED BREATHING AND NO DISTRESS AT THIS TIME. IV ACCESS ON LEFT HAND, INTACT AND PATENT. STROUD CATHETER IN PLACE DRAINING BY GRAVITY. NASOGASTRIC TUBE IN PLACE, INFUSING FEEDING GLUCERNA 1.2 AT 10ml/hr. SAFETY PRECAUTIONS IMPLEMENTED WITH BED LOCKED, BED IN THE LOWEST POSITION, BED ALARM ON, BILATERAL SIDE RAILS UP AND CALL WITHIN EASY REACH OF THE PATIENT. WILL CONTINUE TO MONITOR PATIENT.
[2019-10-31 08:00] VITALS: BP 94/45
[2019-10-31] MEDS: LEVETIRACETAM (500MG) 250 MG in IV NS 0.9% 100 ML IV SCH ×2 (09:32→20:51)
[2019-10-31] MEDS: ENOXAPARIN SODIUM 40 MG/0.4 ML DISP.SYRIN SQ SCH (09:34)
--- NOTE | 2019-10-31 10:04 | NUR ---
WOUND CARE CONSULT: PT SEEN FOR SKIN ASSESSMENT AND NOTED TO HAVE GENERALIZED EDEMA WITH DUSKY COLOR TO FEET AND HEELS, PRESENT ON ADMISSION. RECOMMENDATIONS MADE FOR SKIN PROTECTION. DISCUSSED WITH NURSING STAFF. NIK ISOFLEX LOW AIRLOSS BED TO BE PLACED. STROUD CATH NOTED. WILL SEE PRN. IN AGREEMENT WITH PLAN OF CARE. CURRENT HEIKE SCORE IS 10.
[2019-10-31 10:38] LABS: BASOPHILS # (AUTO) 0.1 /CMM (0.0-0.2); BASOPHILS % (AUTO) 0.8 % (0.0-2.0); EOSINOPHILS % (AUTO) 2.6 % (0.0-6.0); HEMATOCRIT 35 % (33-45); LYMPHOCYTES # (AUTO) 1.4 /CMM (0.8-4.8); LYMPHOCYTES % (AUTO) 16.3 % (20.0-44.0); MEAN CORPUSCULAR HGB CONC 28 g/dl (31.0-36.0); MEAN CORPUSCULAR VOLUME 86 fL (82-100); MONOCYTES # (AUTO) 0.4 /CMM (0.1-1.30); MONOCYTES % (AUTO) 4.2 % (2.0-12.0); NEUTROPHILS # (AUTO) 6.7 /CMM (1.8-8.9); NEUTROPHILS % (AUTO) 76.1 % (43.0-81.0); PLATELET COUNT (AUTO) 116 /CMM (150-450); RED BLOOD CELL COUNT(AUTO) 4.12 MIL/uL (4.0-5.2); WHITE BLOOD COUNT (AUTO) 8.9 K/uL (4.3-11.0)
[2019-10-31 10:59] LABS: ALANINE AMINOTRANSFERASE 13 U/L (12-78); ALBUMIN 1.9 g/dL (3.4-5.0); ALKALINE PHOSPHATASE 66 U/L (46-116); ASPARTATE AMINOTRANSFERASE 46 U/L (15-37); BILIRUBIN,TOTAL 0.7 mg/dL (0.2-1.0); CALCIUM, SERUM 9.1 mg/dL (8.5-10.1); CARBON DIOXIDE 24 mmol/L (21-32); CREATININE 1.5 mg/dL (0.6-1.3); MAGNESIUM 2.4 mg/dL (1.8-2.4); POTASSIUM 3.4 mmol/L (3.5-5.1); TOTAL PROTEIN, SERUM 6.4 g/dL (6.4-8.2); UREA NITROGEN, BLOOD 26 mg/dL (7-18)
[2019-10-31 11:07] LABS: SODIUM SERUM 163 mmol/L (136-145)
[2019-10-31 11:08] LABS: CHLORIDE 127 mmol/L (98-107); GLUCOSE 433 mg/dL (74-106)
--- NOTE | 2019-10-31 11:10 | NUR ---
REPAIRER AUTO CLOCKS NOTES LAB, [facility], REPORTS CRITICAL LAB VALUES OF GLUCOSE 433, CHLORIDE 127, AND SODIUM 163. DR MORENO MADE AWARE. ORDERS GIVEN TO KEEP PATIENT ON D5 IV FLUIDS 100ml/hrs, AND TO CHANGE SLIDING SCALE TO AGGRESSIVE. WILL FOLLOW MD ORDERS AND CARRY OUT, AND WILL CONTINUE TO MONITOR PATIENT.
[2019-10-31] MEDS: IV D5W 1,000 ML IV SCH ×2 (11:57→19:00)
[2019-10-31] MEDS ORDERED: DEXTROSE 50%-WATER 50 ML DISP.SYRIN IV PRN (12:00)
--- NOTE | 2019-10-31 12:05 | NUR ---
TEACHER OF GIFTED STUDENTS NOTES PATIENT'S BLOOD SUGAR 358 PER SLIDING SCALE, 20 UNITS OF INSULIN ADMINISTERED. PATIENT CURRENTLY ON NASOGASTRIC TUBE FEEDING GLUCERNA 1.2, AND CURRENTLY INFUSING D5 AT 100ml/hrs. WILL CONTINUE TO MONITOR PATIENT.
[2019-10-31 16:00] VITALS: BP 89/39
--- NOTE | 2019-10-31 17:52 | NUR ---
PARTS CLEANER NOTES PATIENT'S BLOOD SUGAR 360 PER SLIDING SCALE, 20 UNITS OF INSULIN ADMINISTERED. PATIENT CURRENTLY ON NASOGASTRIC TUBE FEEDING GLUCERNA 1.2, AND CURRENTLY INFUSING D5 AT 100ml/hrs. WILL CONTINUE TO MONITOR PATIENT.
--- NOTE | 2019-10-31 18:53 | NUR ---
ORDER ENTRY ADMINISTRATOR NOTES PATIENT IN BED RESTING COMFORTABLY. ON WINDSCREEN FITTER A-FIB, 80'S. ON NON-REBREATHER 15L, NO SOB NOTED, WITH NON-LABORED BREATHING AND NO DISTRESS AT THIS TIME. IV ACCESS ON LEFT HAND, INTACT AND PATENT. STROUD CATHETER IN PLACE DRAINING BY GRAVITY. NASOGASTRIC TUBE IN PLACE, INFUSING FEEDING GLUCERNA 1.2 AT 10ml/hr. PROVIDED COMFORT MEASURES TO PATIENT AND MET ALL OF PATIENT'S NEEDS. SKIN KEPT CLEAN AND DRY. SAFETY PRECAUTIONS IMPLEMENTED WITH BED LOCKED, BED IN THE LOWEST POSITION, BED ALARM ON, BILATERAL SIDE RAILS UP AND CALL WITHIN EASY REACH OF THE PATIENT. WILL ENDORSE PLAN OF CARE TO UPCOMING NIGHTSHIFT NURSE.
--- NOTE | 2019-10-31 19:40 | NUR ---
WAITER/WAITRESS TOURIST CLASS NOTES RECEIVED ON BED,NON VERBAL,OPEN EYES.IVF OF D5W AT 100ML/HR RATE INFUSING VIA IV PUMP,SITE PATENT.WITH GLUCERNA 1.2 NGT FEEDING AT 10ML/HR RATE TOLERATED WELL,NO RESIDUAL VOLUME NOTED.HOB ELEVATED FOR ASPIRATION PRECAUTION.WITH SALINE LOCK RIGHT HAND INTACT AND PATENT.DNR/DNI STATUS.FAMILY TO DECIDE REGARDING HOSPICE CARE PLACEMENT.WILL CONTINUE TO MONITOR STATUS.
[2019-10-31 20:00] VITALS: BP 101/70
--- NOTE | 2019-10-31 20:00 | NUR ---
CONFIGURATION MANAGEMENT CONSULTANT NOTES AFIB-76 ON TELE MONITOR.
[2019-11-01] VITALS: BP 97/53
--- NOTE | 2019-11-01 | NUR ---
TRANSITION ASSISTANT NOTES VANCOMYCIN TROUGH 32,DOSE HELD PER PROTOCOL.
--- NOTE | 2019-11-01 | NUR ---
SEASONER NOTES ACCU-CHECK BLOOD SUGAR CHECK 280,COVERED WITH HUMULIN R 12 UNITS SQ PER AGGRESSIVE SLIDING SCALE.
--- NOTE | 2019-11-01 | NUR ---
WILDLIFE ECOLOGIST NOTES REFUSED VITAL SIGNS THIS TIME Addendum: 11/01/19 at 0050 by FEDERICO CALABRESE RN WRONG ENTRY OF NOTES,NOT FOR THIS PATIENT
[2019-11-01] MEDS: IV D5W 1,000 ML IV SCH ×2 (03:42→17:11)
[2019-11-01] MEDS: PIPERACILLIN /TAZOBACTAM 3.375 G in IV D5W 50 ML IV SCH ×4 (05:21→23:53)
[2019-11-01] MEDS: BLOOD SUGAR DIAGNOSTIC 1 EACH STRIP IN SCH ×3 (05:21→17:29)
--- NOTE | 2019-11-01 05:30 | NUR ---
BEE RANCHER NOTES ACCU-CHECK BLOOD SUGAR CHECK 195,HUMULIN R 4 UNITS PER SLIDING SCALE.
[2019-11-01] MEDS: INSULIN REGULAR, HUMAN 100 UNIT/ML 3 ML VIAL SQ PRN ×3 (05:31→17:29)
--- NOTE | 2019-11-01 06:40 | NUR ---
MOTOR TESTER NOTES NO SIGNIFICANT CHANGE IN STATUS.BILATERAL UPPER EXTREMITIES WEEPING.ALL DUE MEDS ADMINISTERED EXCEPT VANCOMYCIN DUE TO HIGH VANCO TROUGH LEVEL 32..CONTINUE HOSPITALIZATION PLANNED,AWAITING HOSPICE PLACEMENT,FAMILY TO DECIDE.WILL ENDORSE TO DAY NURSE FOR ANATOLIY.
--- NOTE | 2019-11-01 07:44 | NUR ---
RN NOTES RECEIVED PATIENT ON BED RESTING COMFORTABLY IN MODERATE HIGH BACK REST, NON VERBAL, OPEN EYES. IVF OF D5W AT 100ML/HR, ON TUBE FEEDING WITH GLUCERNA 1.2 10ML/HR RATE TOLERATED WELL, NO RESIDUAL VOLUME NOTED. FOR ASPIRATION PRECAUTION. DNR/DNI STATUS. PER TREE SURGEON, FAMILY TO DECIDE REGARDING HOSPICE CARE PLACEMENT. WILL CONTINUE TO MONITOR.
[2019-11-01 08:00] VITALS: BP 90/45
[2019-11-01] MEDS: ENOXAPARIN SODIUM 30 MG/0.3 ML DISP.SYRIN SQ SCH ×2 (08:26→09:00)
[2019-11-01 08:34] LABS: BASOPHILS # (AUTO) 0.1 /CMM (0.0-0.2); BASOPHILS % (AUTO) 0.7 % (0.0-2.0); EOSINOPHILS % (AUTO) 3.4 % (0.0-6.0); HEMATOCRIT 28 % (33-45); HEMOGLOBIN 8.4 g/dL (11.5-14.8); LYMPHOCYTES # (AUTO) 1.3 /CMM (0.8-4.8); MEAN CORPUSCULAR HGB CONC 30 g/dl (31.0-36.0); MEAN CORPUSCULAR VOLUME 82 fL (82-100); MONOCYTES # (AUTO) 0.7 /CMM (0.1-1.30); MONOCYTES % (AUTO) 6.9 % (2.0-12.0); NEUTROPHILS # (AUTO) 7.8 /CMM (1.8-8.9); PLATELET COUNT (AUTO) 77 /CMM (150-450); RED BLOOD CELL COUNT(AUTO) 3.46 MIL/uL (4.0-5.2); WHITE BLOOD COUNT (AUTO) 10.2 K/uL (4.3-11.0)
[2019-11-01 08:44] LABS: CREATININE 1.3 mg/dL (0.6-1.3); PHOSPHORUS 2.8 mg/dL (2.5-4.9); POTASSIUM 2.9 mmol/L (3.5-5.1)
[2019-11-01 09:04] LABS: EOSINOPHILS % (MANUAL) 2 % (0-4); LYMPHOCYTES % (MANUAL) 9 % (16-48); MONOCYTES % (MANUAL) 3 % (0-11.0); NEUTROPHILS % (MANUAL) 86 (42-76)
[2019-11-01] MEDS: LEVETIRACETAM (500MG) 250 MG in IV NS 0.9% 100 ML IV SCH ×2 (09:17→20:48)
--- NOTE | 2019-11-01 09:30 | NUR ---
RN NOTES PLATELET OF 77, HOLD LOVENOX, ACCIDENTALLY OPENED MEDICATION , WASTED THE MEDICATION WITH Janeth SADLER RN. WILL CONTINUE TO MONITOR.
[2019-11-01] MEDS ORDERED: POTASSIUM CHLORIDE 20 MEQ TAB.PRT.SR PO SCH (11:30)
[2019-11-01] MEDS: VANCOMYCIN 1 GM in IV D5W 250 ML IV SCH ×4 (11:55→12:00)
[2019-11-01] MEDS: POTASSIUM CHLORIDE 20 MEQ POWDER PACKET GT SCH ×3 (11:56→14:09)
--- NOTE | 2019-11-01 12:45 | NUR ---
RN NOTES PATIENT'S IV WAS INFILTRATED. UNABLE TO GET A LINE, MD MADE AWARE AND ORDERED FOR MIDLINE, WAITING FOR MIDLINE NURSE. WILL CONTINUE TO MONITOR.
--- NOTE | 2019-11-01 14:24 | NUR ---
RN NOTES MIDLINE INSERTED ON EN #18, PATENT AND INTACT, WILL CONTINUE TO MONITOR.
--- NOTE | 2019-11-01 18:43 | NUR ---
RN NOTES PATIENT ON BED RESTING COMFORTABLY IN MODERATE HIGH BACK REST, NON VERBAL, OPEN EYES. ON NON REBREATHER MASK 15L OF OXYGEN. IVF OF D5W AT 100ML/HR, ON TUBE FEEDING WITH GLUCERNA 1.2 10ML/HR RATE TOLERATED WELL, NO RESIDUAL VOLUME NOTED. WAITING FOR BED ON [place] PAPER DONE. DNR/DNI STATUS. WILL ENDORSE TO MANAGER STATISTICS NURSE FOR ANATOLIY.
--- NOTE | 2019-11-01 19:15 | NUR ---
MS RN NOTES RECEIVED ON BED ON COMFORTABLE STATUS.IVF D5W AT 100ML/HR RATE IN PROGRESS VIA IV PUMP ON LEFT UPPER ARM MIDLINE.NGT FEEDING ON IN PROGRESS AT 10ML/HR RATE TOLERATED WELL,NO RESIDUAL VOLUME NOTED.HOB ELEVATED FOR ASPIRATION PRECAUTION.STROUD CATH IN PLACE DRAINING CLEAR YELLOW OUTPUT.BILATERAL UPPER EXTREMITIES WEEPING.DNR/DNI STATUS,AWAITING BED AT [facility] FOR TRANSFER VIA AMBULANCE.WILL CONTINUE TO MONITOR STATUS.
[2019-11-01 20:00] VITALS: BP 90/61
[2019-11-01 20:13] VITALS: BP 96/61
--- NOTE | 2019-11-02 | NUR ---
MS RN NOTES ACCU-CHECK BLOOD SUGAR CHECK 250,COVERED WITH HUMULIN R 8 UNITS PER SLIDING SCALE.
[2019-11-02] MEDS: BLOOD SUGAR DIAGNOSTIC 1 EACH STRIP IN SCH ×5 (00:01→23:08)
[2019-11-02] MEDS: INSULIN REGULAR, HUMAN 100 UNIT/ML 3 ML VIAL SQ PRN ×5 (00:13→23:09)
[2019-11-02] MEDS: IV D5W 1,000 ML IV SCH ×3 (05:19→20:56)
[2019-11-02] MEDS: PIPERACILLIN /TAZOBACTAM 3.375 G in IV D5W 50 ML IV SCH ×3 (05:23→18:18)
--- NOTE | 2019-11-02 05:30 | NUR ---
MS RN NOTES ACCU-CHECK BLOOD SUGAR CHECK 303,COVERED WITH 16 HUMULIN R GIVEN SQ ON RIGHT DELTOID PER SLIDING SCALE.GT FEEDING IN PROGRESS,NO RESIDUAL VOLUME NOTED.
--- NOTE | 2019-11-02 06:22 | NUR ---
MS RN NOTES NO SIGNIFICANT CHANGE IN STATUS.REMAINS OBTUNDED,EYES OPEN.GT FEEDING TOLERATED WELL.NO N/V/D NOTED.IVF INFUSING WELL ON LEFT UPPER MIDLINE.REPOSITION PER PROTOCOL.DNR/DNI STATUS.FOR TRANSFER TO [place] WHEN BED AVAILABLE.
[2019-11-02 06:37] LABS: CARBON DIOXIDE 21 mmol/L (21-32); CHLORIDE 122 mmol/L (98-107); CREATININE 1.5 mg/dL (0.6-1.3); POTASSIUM 3.2 mmol/L (3.5-5.1); UREA NITROGEN, BLOOD 28 mg/dL (7-18)
--- NOTE | 2019-11-02 07:15 | NUR ---
MS RN NOTES PATIENT RECEIVED IN BED RESTING COMFORTABLY. PATIENT NON-VERBAL. ON 15L NON-REBREATHER MASK, WITH NO SIGNS OF RESPIRATORY DISTRESS AT THIS TIME. PATIENT SKIN WARM AND DRY, IV ACCESS ON LEFT UPPER ARM MIDLINE INTACT AND PATENT INFUSING D5 AT 100ml/hr. HEAD OF BED RAISED IN SEMI-FOWLERS POSITION. STROUD CATHETER IN PLACE WITH URINE OUTPUT DRAINING BY GRAVITY. NASOGASTRIC TUBE IN PLACE, INFUSING GLUCERNA 1.2 AT 10ml/hr. PATIENT PRESENTS WITH NO SIGNS OF PAIN AT THIS TIME. SAFETY PRECAUTIONS IMPLEMENTED WITH BED LOCKED, BED ALARM ON, BED IN THE LOWEST POSITION, AND CALL LIGHT WITHIN EASY REACH OF THE PATIENT. WILL CONTINUE TO MONITOR PATIENT.
[2019-11-02 07:51] LABS: GLUCOSE 366 mg/dL (74-106); SODIUM SERUM 156 mmol/L (136-145)
[2019-11-02 08:00] VITALS: BP 83/42
--- NOTE | 2019-11-02 09:00 | NUR ---
MS RN NOTES PATIENT SEEN BY DR. MORENO, INFORMED ABOUT PATIENT'S BLOOD SUGAR LEVEL, 366; SODIUM 156; AND BUN 28. INFORMED DR. MORENO ON TRANSFER TO [place], STILL AWAITING TO HEAR FROM [facility], PER [facility] ENDORSED NO BED AVAILABLE. AT THIS TIME NO NEW ORDERS. WILL CONTINUE TO MONITOR PATIENT.
[2019-11-02] MEDS: LEVETIRACETAM (500MG) 250 MG in IV NS 0.9% 100 ML IV SCH (09:31)
[2019-11-02] MEDS: POTASSIUM CHLORIDE 20 MEQ POWDER PACKET NG SCH ×2 (09:48→11:22)
--- NOTE | 2019-11-02 10:15 | NUR ---
MS RN NOTES SPOKE WITH CASE MANAGEMENT REGARDING TRANSFER TO [facility]. NO CALLS OR INFORMATION AT THIS TIME FROM [facility]. CASE MANAGEMENT MADE AWARE AND IS FOLLOWING.
--- NOTE | 2019-11-02 11:32 | NUR ---
MS RN NOTES PATIENT'S BLOOD SUGAR 343 PER SLIDING SCALE, 16 UNITS OF INSULIN ADMINISTERED. PATIENT CURRENTLY ON NASOGASTRIC TUBE FEEDING GLUCERNA 1.2, AND CURRENTLY INFUSING D5 AT 100ml/hrs. WILL CONTINUE TO MONITOR PATIENT.
[2019-11-02 16:00] VITALS: BP 75/43
--- NOTE | 2019-11-02 18:19 | NUR ---
MS RN NOTES PATIENT'S BLOOD SUGAR 327 PER SLIDING SCALE, 16 UNITS OF INSULIN ADMINISTERED. PATIENT CURRENTLY ON NASOGASTRIC TUBE FEEDING GLUCERNA 1.2, AND CURRENTLY INFUSING D5 AT 100ml/hrs. WILL CONTINUE TO MONITOR PATIENT.
--- NOTE | 2019-11-02 19:45 | NUR ---
MS RN NOTES PATIENT IN BED RESTING COMFORTABLY. ON NON-REBREATHER 15L, NO SOB NOTED, WITH NON-LABORED BREATHING AND NO DISTRESS AT THIS TIME. IV ACCESS ON LEFT UPPER ARM, INTACT AND PATENT INFUSING D5 IV FLUIDS AT 100ml/hr. STROUD CATHETER IN PLACE DRAINING BY GRAVITY. NASOGASTRIC TUBE IN PLACE, INFUSING FEEDING GLUCERNA 1.2 AT 10ml/hr. PROVIDED COMFORT MEASURES TO PATIENT AND MET ALL OF PATIENT'S NEEDS. SKIN KEPT CLEAN AND DRY. SAFETY PRECAUTIONS IMPLEMENTED WITH BED LOCKED, BED IN THE LOWEST POSITION, BED ALARM ON, BILATERAL SIDE RAILS UP AND CALL WITHIN EASY REACH OF THE PATIENT. WILL ENDORSE PLAN OF CARE TO UPCOMING NIGHTSHIFT NURSE.
[2019-11-02 20:00] VITALS: BP 97/52
--- NOTE | 2019-11-02 20:01 | NUR ---
chief of internal medicine: received report from hayde ross at 1925. pt in bed, non-verbal, lethargic, on 15L nrb mask, mepilex applied on cheek area to act as cushion. rr 21. pt dnr dni, vikram midline in placed, ivf d5w at 100ml/hr. pt has right nare ngtube in placed, patency check performed, able to hear gurgling sound upon injecting 60ml of air filled syringe, no gtube residual obtained, able to flush well with 30cc of water, no resistance met, abdomen soft to touch, with active bowel sound heard upon auscultation. noted generalized edema, jagdeep on bue. ble and bue offloaded on pillows. assisted a&p technician in repositioning pt, keeping pt on high fowlers position, aspiration precaution initiated, new bag of gtube feeding administered. glucerna 1.2 at 10ml/hr. pt received with denise catheter in placed. safety precautions for fall initiated, call light in reach, will [id number] monitoring pt.
[2019-11-02] MEDS: LEVETIRACETAM SOL (5 ML) 100 MG/ML UDC GT SCH (20:56)
--- NOTE | 2019-11-02 20:56 | NUR ---
RN NOTES/NON ADMIN OF NEW BAG OF D5W: D5W 1L JUST ADMINISTERED AT 1800 BY DAY RN, BAG STILL INFUSING WITH APPROXIMATELY 800ML OF IVF D5W.
--- NOTE | 2019-11-02 20:56 | NUR ---
RN NOTES: ALL DUE MEDS ADMINISTERED AT THIS TIME, AFTER CHECKING GTUBE PATENCY.
[2019-11-02] MEDS: GLUCERNA 1.2 1,000 ML BOTTLE NG PRN (21:02)
--- NOTE | 2019-11-02 21:30 | NUR ---
RN NOTES: REMAINS LETHARGIC, RESPIRATIONS EVEN AND UNLABORED, REMAINS ON NRB 15L. REMAINS ON GTUBE FEEDING, KEPT HOB 45 DEGREE, ASPIRATION PRECAUTIONS MAINTAINED
--- NOTE | 2019-11-02 22:30 | NUR ---
RN NOTES: ASSISTED HEAT REGULATOR IN REPOSITIONING PT. BUE AND BLE KEPT OFFLOADED ON PILLOWS.
--- NOTE | 2019-11-02 23:09 | NUR ---
accu check 299: fingerstick blood glucose check performed and obtained result os 299. 12units of insulin administered per sliding scale. pt on gtube feeding. will monitor pt for any s/s of hypoglycemia.
--- NOTE | 2019-11-02 23:30 | NUR ---
rn notes: pt remains obtunded, rr noted to be 21. remains on nrb 15l spo2 98%
--- NOTE | 2019-11-03 | NUR ---
RN NOTES/FREE WATER FLUSH: 150ML OF FREE WATER FLUSH PROVIDED VIA NGTUBE PER MD ORDERED. RR 18
[2019-11-03] MEDS: PIPERACILLIN /TAZOBACTAM 3.375 G in IV D5W 50 ML IV SCH ×5 (00:12→23:27)
--- NOTE | 2019-11-03 02:05 | NUR ---
rn notes/tube feeding increase to 15ml: goal is 20ml/hr, gtube residual and patency check performed, no residual obtained. increased gtube feeding to 15ml/hr. kept on aspiration precautions. pt kept on high fowlers positon.
[2019-11-03 05:00] VITALS: BP 90/55
--- NOTE | 2019-11-03 05:23 | NUR ---
rn notes: assisted computer salesperson retail in providing bed bath to pt, new mepilex applied on sacral area for cushion, also guard applied for protection against redness and moisture related skin breakdown. complete linen change provided. oral care provided, suction orally prn as needed
[2019-11-03] MEDS: IV D5W 1,000 ML IV SCH ×2 (05:36→23:37)
[2019-11-03] MEDS: INSULIN REGULAR, HUMAN 100 UNIT/ML 3 ML VIAL SQ PRN ×4 (05:37→23:40)
[2019-11-03] MEDS: BLOOD SUGAR DIAGNOSTIC 1 EACH STRIP IN SCH ×4 (05:37→23:27)
--- NOTE | 2019-11-03 05:38 | NUR ---
accu check 291: blood glucose check performed result is 291, 12 units of insulin given per sliding scale.
--- NOTE | 2019-11-03 06:51 | NUR ---
end of shift report: pt remains obtunded, on nrb 15L. mouth breather. rr 22. mepilex on cheek area remains in placed to provide as cushion preventing skin breakdown due to use of nrb mask. iv access remains patent and flushing well, infusing with d5w at 100ml/hr, no s/s of iv infiltration noted. bue and ble kept offloaded on pillows and also placed absorbent pads as right arm and hand noted to be weeping. mepilex placed for cushion on sacral area. oral care provided. pt kept on aspiration and seizure precautions. ngtube on right nare remains in placed, gtube feeding at 15ml/hr, tolerated well by pt. kept on high fowlers. vs remains stable, needs attended. am care and linen change provided. PLAN OF CARE: For transfer to [place], awaiting bed availabilty. Transfer papers filled up. safety precautions for fall remains engaged, call light in reach, will endorse to day rn for continuity of care.
[2019-11-03 07:49] VITALS: BP 90/50
--- NOTE | 2019-11-03 08:00 | NUR ---
MS RN AM NOTES Pt remains obtunded, on nrb 15L. mouth breather. rr 22. mepilex on cheek area remains in placed to provide as cushion preventing skin breakdown due to use of nrb mask. iv access remains patent and flushing well, infusing with d5w at 100ml/hr, no s/s of iv infiltration noted. bue and ble kept offloaded on pillows and also placed absorbent pads as right arm and hand noted to be weeping. mepilex placed for cushion on sacral area. oral care provided. pt kept on aspiration and seizure precautions. ngtube on right nare remains in placed, gtube feeding at 10ml/hr, tolerated well by pt. kept on high fowlers. am care and linen change provided. PLAN OF CARE: For transfer to [place], awaiting bed availabilty. Transfer papers filled up. safety precautions for fall remains engaged, call light in reach,
[2019-11-03 08:26] LABS: BASOPHILS % (AUTO) 0.3 % (0.0-2.0); EOSINOPHILS % (AUTO) 2.5 % (0.0-6.0); HEMATOCRIT 27 % (33-45); LYMPHOCYTES # (AUTO) 1.5 /CMM (0.8-4.8); MEAN CORPUSCULAR HGB CONC 30 g/dl (31.0-36.0); MEAN CORPUSCULAR VOLUME 83 fL (82-100); MONOCYTES # (AUTO) 0.6 /CMM (0.1-1.30); MONOCYTES % (AUTO) 6.2 % (2.0-12.0); NEUTROPHILS # (AUTO) 7.5 /CMM (1.8-8.9); PLATELET COUNT (AUTO) 54 /CMM (150-450); RED BLOOD CELL COUNT(AUTO) 3.24 MIL/uL (4.0-5.2); WHITE BLOOD COUNT (AUTO) 9.9 K/uL (4.3-11.0)
[2019-11-03 08:44] LABS: CALCIUM, SERUM 8.7 mg/dL (8.5-10.1); CARBON DIOXIDE 22 mmol/L (21-32); CHLORIDE 115 mmol/L (98-107); CREATININE 1.4 mg/dL (0.6-1.3); GLUCOSE 318 mg/dL (74-106); MAGNESIUM 1.9 mg/dL (1.8-2.4); PHOSPHORUS 3.3 mg/dL (2.5-4.9); POTASSIUM 3.9 mmol/L (3.5-5.1); SODIUM SERUM 148 mmol/L (136-145); UREA NITROGEN, BLOOD 24 mg/dL (7-18)
[2019-11-03] MEDS: LEVETIRACETAM SOL (5 ML) 100 MG/ML UDC GT SCH ×2 (08:49→20:34)
--- NOTE | 2019-11-03 11:50 | NUR ---
Received call from Dahiana stating that she is upset that she can visit the pt, I explained to her about visiting restrictions due to covid, and she was explained by rn type disk quality control supervisor as well. updated with pt's condition and treatment plan, video call offered but stated that she is not able to receive video calls.
[2019-11-03] MEDS ORDERED: VANCOMYCIN 1 GM in IV D5W 250 ML IV SCH (12:00)
--- NOTE | 2019-11-03 13:00 | NUR ---
CALLED PT'S DAUGHTER, KAMILLA AND EXPLAINED TO DO A FACETIME OR VIDEO CALL WITH HER MOM INSTEAD SINCE WE ARE RESTRICTED TO RECEIVE VISITORS DUE TO COVID PER HOSPITAL POLICY. KAMILLA INSISTS THAT SHE WANT TO SEE HER MOM IN PERSON. KAMILLA STATED THAT SHE WILL CALL IN THE ELEMENTARY ASSISTANT PRINCIPAL TO TRY AGAIN IF THEY WILL ALLOW HER TO COME INSIDE THE HOSPITAL AND VISIT HER MOM. ACTIVE LISTENING AND EMOTIONAL SUPPORT PROVIDED.
[2019-11-03 14:02] LABS: BAND % (MANUAL) 2 % (0.0-5.0); LYMPHOCYTES % (MANUAL) 18 % (16-48); MONOCYTES % (MANUAL) 5 % (0-11.0); NEUTROPHILS % (MANUAL) 75 (42-76)
[2019-11-03 15:54] VITALS: BP 75/41
--- NOTE | 2019-11-03 18:25 | NUR ---
PT RESTING IN BED WITH NRB MASK AT 15L O2.HOB ELEVATED.NON VERBAL, OBTUNDED,PALE SKIN.WITH RT NARES NGT CONNECTED TO GLUCERNA FEEDING AT 10 ML/HR TOLERATING WELL. WITH ASPIRATION PRECAUTIONS.KEPT COMFORTABLE.WITH EN MIDLINE D5W RUNNING AT 50 ML/HR INFUSING WELL.STILL AWAITING FOR BATH BED AVAILABILITY PER [employer].
[2019-11-03 20:00] VITALS: BP 80/46
--- NOTE | 2019-11-03 20:00 | NUR ---
ms/rn opening notes' PATIENT IN BED, SHALLOW BREATHING ON NON REBREATHING MASK OF 15 ML/HR, PATIENT SKIN WARM TO TOUCH, LETHARGIC, NON VERBAL, OBTUNDED, PATIENT PER MD WITH HEALTH DECLINING, ON STROUD CATHETER DRAINING MINIMAL LIGHT COLORED URINE WITH BLOOD PRESSURE VERY LOW, OXYGENATION AT 99%, DAUGHTER RADHA IN CHARGE OF PATIENT AND REQUESTING TO SEE MOTHER EVEN FOR 10 MINUTES CONDITION IS DECLINING BUT STILL REFUSES MOM TO BE OFF FROM OXYGEN AND MEDICATION, CHARGE NURSE WAS MADE AWARE AND TO BROUGHT TO CONSIGNEE DECISION AND GRANTED TO SEE MOM FOR A SHORT WHILE. RN OBSERVE PATIENT AND DAUGHTER PRAYING FRO MOM AND LEFT AFTER 10 MINUTES. BED LOCKED, WARM BLANKET TO BE PROVIDED.
--- NOTE | 2019-11-04 03:00 | NUR ---
MS/RN NOTES PATIENT ASSISTED FOR COMFORT, REPOSITIONED AND TURNED, GTUBE PRIMED VIA NGT, PATIENT PROVIDED CARE, APPLIED SKIN BARRIER CREAM FOR GIOVANNA REDNESS.STROUD CATHETER DRAINING URINE LIGHT YELLOW COLOR.
[2019-11-04] MEDS: GLUCERNA 1.2 1,000 ML BOTTLE NG PRN (03:02)
[2019-11-04] MEDS: PIPERACILLIN /TAZOBACTAM 3.375 G in IV D5W 50 ML IV SCH ×4 (05:30→23:35)
[2019-11-04] MEDS: BLOOD SUGAR DIAGNOSTIC 1 EACH STRIP IN SCH ×4 (05:36→23:39)
[2019-11-04] MEDS: INSULIN REGULAR, HUMAN 100 UNIT/ML 3 ML VIAL SQ PRN ×3 (05:50→17:43)
--- NOTE | 2019-11-04 06:25 | NUR ---
308-2 MS/RN NOTES PATIENT BED BOUND, ON NON BREATHING MASK WITH 15 LITER OXYGEN, MONITORED FOR ANY CHANGES, KEPT COMFORTABLE, FAMILY INVOLVE. ATTENDED TO ALL NEEDS, OFF LOAD. KEPT WARM, IV FLUIDS INFUSING ANG NGT TUBE WITH GLUCERNA 1.2 AT A START RATE 10 WITH GOAL TO REACH OF 50ML/ WILL ENDORSE TO AM RN FOR ANATOLIY. URINE DRAINING LIGHT YELLO MODERATE AMOUNT OF URINE. IV SITE PATENT.
[2019-11-04 06:37] LABS: BASOPHILS # (AUTO) 0.1 /CMM (0.0-0.2); BASOPHILS % (AUTO) 0.5 % (0.0-2.0); HEMATOCRIT 27 % (33-45); LYMPHOCYTES # (AUTO) 1.2 /CMM (0.8-4.8); MEAN CORPUSCULAR HGB CONC 29 g/dl (31.0-36.0); MEAN CORPUSCULAR VOLUME 84 fL (82-100); MONOCYTES # (AUTO) 0.5 /CMM (0.1-1.30); MONOCYTES % (AUTO) 5.6 % (2.0-12.0); NEUTROPHILS # (AUTO) 7.9 /CMM (1.8-8.9); NEUTROPHILS % (AUTO) 80.9 % (43.0-81.0); RED BLOOD CELL COUNT(AUTO) 3.22 MIL/uL (4.0-5.2); WHITE BLOOD COUNT (AUTO) 9.8 K/uL (4.3-11.0)
[2019-11-04 06:48] LABS: PLATELET COUNT (AUTO) 48 /CMM (150-450)
[2019-11-04 06:56] LABS: CALCIUM, SERUM 8.5 mg/dL (8.5-10.1); CARBON DIOXIDE 20 mmol/L (21-32); CHLORIDE 111 mmol/L (98-107); CREATININE 1.5 mg/dL (0.6-1.3); GLUCOSE 340 mg/dL (74-106); MAGNESIUM 2.1 mg/dL (1.8-2.4); PHOSPHORUS 4.8 mg/dL (2.5-4.9); SODIUM SERUM 144 mmol/L (136-145); UREA NITROGEN, BLOOD 24 mg/dL (7-18)
--- NOTE | 2019-11-04 07:05 | NUR ---
MS RN OPENING NOTES RECEIVED PATIENT RESTING IN BED AT THIS, NON VERBAL AND OBTUNDED. SHALLOW BREATHING ON NON REBREATHING MASK OF 15 ML/HR, PATIENT SKIN WARM TO TOUCH, LETHARGIC, STROUD CATHETER IN PLACE DRAINING TO GRAVITY LIGHT YELLOW URINE OUTPUT. EN MIDLINE IN PLACE, INTACT AND PATENT. NG-TUBE IN PLACE WITH NO RESIDUAL NOTED. DECREASED BLOOD PRESSURE WITH SPO2 OF 100%. ASPIRATION AND SAFETY PRECAUTIONS IN PLACE. BED IN LOWEST LOCKED POSITION, SIDE RAILS UP, HOB ELEVATED, CALL LIGHT WITHIN REACH. WILL CONTINUE TO MONITOR
--- NOTE | 2019-11-04 07:30 | NUR ---
PATIENT'S PLATELET COUNT IS 48, DOCTOR TIFFANIE MADE AWARE, PER DOCTOR [id number] CONTINUE TO MONITOR. WILL CONTINUE WITH PLAN OF CARE
[2019-11-04 08:00] VITALS: BP 70/38
--- NOTE | 2019-11-04 08:00 | NUR ---
PATIENT NOTED WITH SACRAL WOUND. PICTURES TAKEN AND FILED IN CHART. WOUND CONSULT ORDERED. [facility] ORDERED. WILL CONTINUE TO MONITOR
[2019-11-04] MEDS: LEVETIRACETAM SOL (5 ML) 100 MG/ML UDC GT SCH ×2 (09:19→20:48)
[2019-11-04 09:34] LABS: BAND % (MANUAL) 1 % (0.0-5.0); LYMPHOCYTES % (MANUAL) 11 % (16-48); MONOCYTES % (MANUAL) 7 % (0-11.0); NEUTROPHILS % (MANUAL) 81 (42-76)
--- NOTE | 2019-11-04 11:18 | NUR ---
PATIENT IS CONGESTED. PATIENT SUCTIONED TOLERATED. DOCTOR MORENO MADE AWARE. PER DOCTOR MORENO, ORDER A CHEST X-RAY. ORDERS READ BACK AND CARRIED OUT. WILL CONTINUE TO MONITOR
--- NOTE | 2019-11-04 12:00 | NUR ---
WATER FLUSH WITH 150ML AT THIS TIME PER ORDER. WILL CONTINUE TO MONITOR
[2019-11-04 16:00] VITALS: BP 78/43
--- NOTE | 2019-11-04 18:00 | NUR ---
WATER FLUSHED WITH 150ML Q6HRS AT THIS TIME PER ORDER. WILL CONTINUE TO MONITOR
--- NOTE | 2019-11-04 19:37 | NUR ---
MS RN CLOSING NOTES PT RESTING IN BED AT THIS TIME. PT REMAINED STABLE THROUGHOUT SHIFT. ALL CARE, NEEDS, TREATMENT, MEDICATIONS ADMINISTERED ANTICIPATED PER SCHEDULE. PT KEPT CLEAN AND DRY. SAFETY PRECAUTIONS IN PLACE, BED IN LOWEST LOCKED POSITION, HOB ELEVATED, SIDE RAILS UP, CALL LIGHT WITHIN REACH, WILL ENDORSE TO DIGITAL PHOTOGRAPHIC PRINTER NURSE FOR ANATOLIY.
[2019-11-04 20:00] VITALS: BP 100/49
--- NOTE | 2019-11-04 20:00 | NUR ---
MS/RN OPENING NOTES RECEIVED PATIENT IN BED, OBTUNDED, APHASIA, LETHARGIC, ON NON REBREATHER MASK OF 15 LITER, SKIN COOL TO TOUCH., WARM BLANKET PROVIDED, PATIENT TO MONITORED FOR ANY CHANGES, BED LOCKED, CALL LIGTHS WITHIN REACH MONITORED FOR SAFETY. NGT TUBE PATENT, STROUD DRAINING URINE TO MONITOR.
--- NOTE | 2019-11-04 20:43 | NUR ---
MS/RN NOTES WITH CHARGE NURSE AND BOOK SEWER KNOWLEDGE AND HAVE ALLOWED FOR REQUEST BY DAUGHTER RADHA TO VISIT HER GRAVELY SICK MOM FOR ONLY 10 MINUTES FOR COMFORT AND PRAYERS. RN ASSISTED. PATIENT IN COMFORTABLE POSITION. MONITORED.
[2019-11-04] MEDS: IV D5W 1,000 ML IV SCH (20:55)
--- NOTE | 2019-11-04 21:26 | NUR ---
MS/RN NOTES OBSERVED WITH SECRETIONS UNABLE TO COUGH OUT, NO GAG REFLEX, REQUIRE DEEPSUCTION, RT ASSISTED AND [employer] SUCTION DONE, ORAL SUCTION WITH YANKER, MONITORED SATURATION 95% REACHED.
--- NOTE | 2019-11-04 22:20 | NUR ---
MS/RN NOTES PATIENT OBSERVE WITH CONTINOUS LABORED BREATHING, ON NON REBREATHER MASK, WITH COARSE LUNG SOUNDS. MORE EDAMATOUS IN BLE AND BUE,. IV INFUSION HELD AT THIS TIME.
--- NOTE | 2019-11-05 00:47 | NUR ---
BELONGINGS OF 3 RINGS TO BE KEPT IN SAFE FOR SECURITY IN ENVIRONMENTAL SERVICES LEAD LOCKER, TO FOLLOW UP WITH DAUGHTER RADHA.
--- NOTE | 2019-11-05 01:00 | NUR ---
MS/RN NOTES MINIMAL URINE OUTPUT NOTICEABLE, SKIN , COOL SKIN, LABORED BREATHING SOUND OF GARGLING.
--- NOTE | 2019-11-05 01:30 | NUR ---
MS/RN NOTES PATIENT OBSERVE SKIN WARM TO TOUCH, PALE AND NO PULSE. CHARGE NURSE AND RN TIME OF AT 0130. MD CONTACTED AND MADE AWARE .
--- NOTE | 2019-11-05 01:35 | NUR ---
DAUGHTER RADHA WAS CONTACTED AND REPORTED ABOUT PATIENT , MD MADE AWARE, PAPER BALING MACHINE OPERATOR MADE AWARE AND ADMITTING ER WAS MADE AWARE.
--- NOTE | 2019-11-05 01:59 | NUR ---
MS/RN NOTES [facility] CONTACTED AND REPORTED REGARDING TIME OF AND WITH CASE # [id number] WITH VASCULAR SURGEON KIMMIE.
--- NOTE | 2019-11-05 02:17 | NUR ---
MS/RN NOTES PATIENT DAUGHTER RADHA ARRIVED AND ASSISTED TO SEE PATIENT FINAL , PROVIDED POST MORTEM HAVE PROVIDED, BODY WAS CLEANSED, MIDLINE REMOVED, STROUD CATHETER WAS REMOVED, NGT REMOVED. PATIENT PLACED .
--- NOTE | 2019-11-05 02:21 | NUR ---
MS/RN NOTES PATIENT DAUGHTER RECEIVED BELONGINGS OF PATIENT THE THREE RINGS.
--- NOTE | 2019-11-05 02:24 | NUR ---
PER [facility] UNABLE TO PROCEED DUE AND PROVIDED REFERENCE NUMBER [id number].
--- NOTE | 2019-11-05 02:39 | NUR ---
MS/RN NOTES CONTACTED [facility] SPOKE WITH BUILDING STONECUTTER JOSEPH AND GIVEN INFORMATION OF LEGAL NEXT OF KIN NAQVI KAMILLA, ADDRESS, PHONE NUMBER, DATE OF AND RELATIONSHIP, LOCATION OF BODY PROVIDED AND ROOM NUMBER AND WILL BE COMING TO [employer] BODY TODAY.
--- NOTE | 2019-11-05 04:40 | NUR ---
MADE A CALL ON MORTUARY FOR ESTIMATED TIME THAT WILL BE IN ABOUT 30 MINUTES.
--- NOTE | 2019-11-05 05:01 | NUR ---
MS/RN NOTES BODY OF PATIENT WAS PICKED UP BY MORTUARY CAREER LAW CLERK ABHIJEET AND SIGNED FOR RELEASE. ADMINISTRATIVE SPECIALIST MADE AWARE. DOCUMENTATION PROVIDED.
== END 2019-11-05 01:30 | disposition expired | DRG 871 ==
LOC: ER 20:57 → TELE 23:55 → MED 11-01 11:15
PROVIDERS: ADMIT Nurse Practitioner Acute Care; ATTEND Student in an Organized Health Care Education/Training Program
PROC: 05HA33Z Insertion of Infusion Device into Left Brachial Vein, Percutaneous Approach (ICD-10-PCS; principal; 2019-11-04)
DX: A41.9 Sepsis, unspecified organism (principal); I21.A1 Myocardial infarction type 2; I63.9 Cerebral infarction, unspecified; Z66 Do not resuscitate; Z51.5 Encounter for palliative care; G93.41 Metabolic encephalopathy; J96.01 Acute respiratory failure with hypoxia; J15.9 Unspecified bacterial pneumonia; R53.2 Functional quadriplegia; N17.0 Acute kidney failure with tubular necrosis; R40.2312 Coma scale, best motor response, none, at arrival to emergency department; R40.2112 Coma scale, eyes open, never, at arrival to emergency department; R40.2212 Coma scale, best verbal response, none, at arrival to emergency department; D68.59 Other primary thrombophilia; E87.0 Hyperosmolality and hypernatremia; I69.351 Hemiplegia and hemiparesis following cerebral infarction affecting right dominant side; E87.2 Acidosis; D68.9 Coagulation defect, unspecified; J44.0 Chronic obstructive pulmonary disease with (acute) lower respiratory infection; J90 Pleural effusion, not elsewhere classified; G40.909 Epilepsy, unspecified, not intractable, without status epilepticus; E86.0 Dehydration; K21.9 Gastro-esophageal reflux disease without esophagitis; Z85.828 Personal history of other malignant neoplasm of skin; M19.90 Unspecified osteoarthritis, unspecified site; R62.7 Adult failure to thrive; Z88.5 Allergy status to narcotic agent; Z88.2 Allergy status to sulfonamides; Z88.8 Allergy status to other drugs, medicaments and biological substances; Z79.84 Long term (current) use of oral hypoglycemic drugs; Z79.01 Long term (current) use of anticoagulants; Z79.899 Other long term (current) drug therapy; E78.5 Hyperlipidemia, unspecified; F32.9 Major depressive disorder, single episode, unspecified; I48.91 Unspecified atrial fibrillation; D69.6 Thrombocytopenia, unspecified; K64.4 Residual hemorrhoidal skin tags; K90.0 Celiac disease; Y95 Nosocomial condition; E86.9 Volume depletion, unspecified; E86.1 Hypovolemia
CPT/HCPCS: 36415; 36600; 70450-TC; 71045-TC; 74018; 80048-TC; 80053-TC; 80061-TC; 80076-TC; 80202-TC; 81000-TC; 82803-TC; 82962-TC; 83605-TC; 83690-TC; 83735-TC; 84100-TC; 84484-TC; 85025-TC; 87040-TC; 87081-TC; 87086-TC; A6253; G0378; J1650; J1815; J1953; J2543; J3370; J3480; J7030; J7040; J7050; J7060; J7070